=== PATIENT | male | born 2000 | race Caucasian/White ===

== ENCOUNTER 2022-10-08 06:15 | Emergency (ER) | payer OTHER, SELFPAY ==
--- NOTE | ~2022-10-08 | XR_ITS ---
EXAMINATION: XR CHEST CLINICAL INFORMATION: Shortness of breath COMPARISON: None TECHNIQUE: Frontal view of the chest was obtained. FINDINGS: No significant abnormality is noted involving the heart, lungs, mediastinum, bony thorax or soft tissues. XR/XR chest 1V IMPRESSION: Normal chest x-ray.
--- NOTE | 2022-10-08 06:18 | ECG_ITS ---
Test Reason : chest pain/ shortness of breath Blood Pressure : / mmHG Vent. Rate : 070 BPM Atrial Rate : 070 BPM P-R Int : 156 ms QRS Dur : 092 ms QT Int : 390 ms P-R-T Axes : 067 086 058 degrees QTc Int : 421 ms Normal sinus rhythm Normal ECG No previous ECGs available Referred By: Generic ED Physician Electronically Signed By:Lonny Tinoco
[2022-10-08 06:41] LABS: MANUAL DIFF FLAG NO
[2022-10-08 06:44] VITALS: BP 117/73; PULSE 87; RESP 18; TEMP 36.8; O2SAT 99
[2022-10-08 06:45] LABS: Basophils Percent Auto 0.8 % (0-2); Eosinophils Absolute Auto 0.1 X10*3/uL (0.0-0.4); Eosinophils Percent Auto 1.9 % (0-4); Hematocrit 46.5 % (42.0-52.0); Hemoglobin 16.1 g/dl (14.0-18.0); Imm Gran Abs Auto 0.02 X10*3/uL (0.00-0.03); Imm Gran Pct Auto 0.4 % (0.0-0.4); Lymphocytes Absolute Auto 1.5 X10*3/uL (1.2-4.9); Lymphocytes Percent Auto 28.6 % (20-40); Mean Corpuscular HGB Conc 34.6 g/dl (31.0-36.0); Mean Corpuscular Hemoglobin 30.7 pg (27.0-33.0); Mean Corpuscular Volume 88.7 fL (80.0-98.0); Mean Platelet Volume 9.6 fL (9.4-12.4); Monocytes Absolute Auto 0.9 X10*3/uL (0.1-1.2); Monocytes Percent Auto 16.5 % (2-11); Neutrophils Absolute Auto 2.7 x10*3/uL (2.0-8.3); Neutrophils Percent Auto 51.8 % (45-73); Platelet Count 265 X10*3/uL (160-400); Red Blood Count 5.24 X10*6/uL (4.60-5.80); Red Cell Distribution Width 12.5 % (11.0-16.0); White Blood Count 5.3 X10*3/uL (4.8-10.8)
--- NOTE | 2022-10-08 06:46 | ED_ITS ---
HPI - Chest Pain General Chief Complaint: Chest Pain Stated Complaint: Sob/Chest wall pain Time Seen by Provider: 10/08/22 06:37 Source: patient Mode of arrival: ambulatory Limitations: no limitations History of Present Illness HPI narrative: 22 year old male presents to the ED after waking up around 0500 with a cough and chest pain. He denies being sick he states he is vaccinated for covid and flu. He states cough is causing worsening chest pain. He denies fever chills headache, nausea vomiting or diarrhea. MD complaint: chest pain Related Data Previous Rx's Medication Instructions Recorded benzonatate 100 mg capsule 100 mg PO BID #20 caps 10/08/22 Allergies Allergy/AdvReac Type Severity Reaction Status Date / Time No Known Allergies Allergy Unverified 05/21/20 16:40 Review of Systems Review of Systems: Review of systems: General: Patient denies any fever chills recent illness or falls Musculoskeletal: Denies back pain or body aches or other injuries HEENT: denies headache, runny nose, ear pain Respiratory: coughdenies shortness of breath, Cardiovascular: chest pain no palpitations : denies dysuria, frequency Abdomen: no nausea vomiting denies abdominal pain Extremities: no swelling, no pain Skin: no diaphoresis Yes all other systems are reviewed and are negative PMFSH Social History Social History Alcohol intake: never Smoked in Last 30 Days: No Use of substances other than those prescribed or required for medical reasons: No Advance Directives: No Advance Directives Information Provided: No Physical Exam Vital Signs: Vital Signs: Last Vital Signs Temp 98.3 F 10/08/22 07:31 Pulse 64 10/08/22 07:31 Resp 16 10/08/22 07:31 BP 117/73 10/08/22 07:31 Pulse Ox 99 10/08/22 07:31 O2 Del Method 10/08/22 07:31 BMI result Body Mass Index 22.1 General: Well-appearing well-nourished in no signs of distress HEENT: Normocephalic atraumatic Neck: No signs of JVD, no masses no tenderness or lymphadenopathy Cardiovascular: Regular rate and rhythm, chest wall pain reproducible on exam Respiratory: Clear to auscultation bilaterally Abdomen: Soft nontender no masses Extremities: Normal pedal pulses no signs of edema Skin: Dry warm no rashes Back: No tenderness full ROM Medications Administered Discontinued Medications Generic Name Dose Route Start Last Admin Trade Name Trini PRN Reason Stop Dose Admin Benzonatate 100 mg 10/08/22 06:48 10/08/22 07:10 Benzonatate 100 Mg Capsule PO 10/08/22 06:49 100 mg ONCE ONE Administration Sodium Chloride 1,000 mls @ 999 mls/hr 10/08/22 07:15 10/08/22 08:53 Ns IV 10/08/22 08:15 Infused .Q1H1M ARA Infusion Ketorolac Tromethamine 15 mg 10/08/22 07:02 10/08/22 07:10 Ketorolac Tromethamine 15 Mg/Ml Vial IVPUSH 10/08/22 07:03 15 mg ONCE ONE Administration Medical Decision Making Medical Decision Making [facility] Narrative: I will get an x-ray of send labs including RSV COVID and flu will give patient has tessalon Perles and Toradol 0900 covid flu RSV are all negative. I will send home with PCP follow up. Differential Diagnosis Differential Diagnoses: The differential diagnosis associated with the presentation includes ACS but very unlikely I do not think a troponin these symptoms patient EKG is normal patient is a 22 years of age sounds like a viral illness causing chest wall pain obviously pneumonia is on the differential will get a x-ray is no con cerns for PE is tachycardic or hypoxic of these have an aortic herself ruptured cardiac tamponade is very unlikely with a normal x-ray and normal EKG. Admission/Observation Consideration of admission/observation: Escalation of care including admission/observation considered Ninety visit patient looks well Lab Data [facility] Lab Attestation statement: I reviewed the patient's lab results. 10/08/22 06:30 10/08/22 06:30 Labs: Lab Results 10/08/22 10/08/22 10/08/22 Range/Units 06:30 06:30 06:30 WBC 5.3 (4.8-10.8) X10*3/uL RBC 5.24 (4.60-5.80) X10*6/uL Hgb 16.1 (14.0-18.0) g/dl Hct 46.5 (42.0-52.0) % MCV 88.7 (80.0-98.0) fL MCH 30.7 (27.0-33.0) pg MCHC 34.6 (31.0-36.0) g/dl RDW 12.5 (11.0-16.0) % Plt Count 265 (160-400) X10*3/uL MPV 9.6 (9.4-12.4) fL Immature Gran % (Auto) 0.4 (0.0-0.4) % Neut % (Auto) 51.8 (45-73) % Lymph % (Auto) 28.6 (20-40) % [place] % (Auto) 16.5 H (2-11) % Eos % (Auto) 1.9 (0-4) % Baso % (Auto) 0.8 (0-2) % Lymph # (Auto) 1.5 (1.2-4.9) X10*3/uL [place] # (Auto) 0.9 (0.1-1.2) X10*3/uL Eos # (Auto) 0.1 (0.0-0.4) X10*3/uL Baso # (Auto) 0.0 (0.0-0.2) X10*3/uL Abs Immat Gran (auto) 0.02 (0.00-0.03) X10*3/uL Absolute Neuts (auto) 2.7 (2.0-8.3) x10*3/uL Absolute Nucleated RBC 0.000 (0.0-0.012) X10*3/uL Nucleated RBC % (auto) 0.0 (0.0-0.2) /100WBC Sodium 139 (135-145) mmol/L Potassium 3.5 (3.3-5.1) mmol/L Chloride 107 (96-108) mmol/L Carbon Dioxide 26 (22-29) mmol/L Anion Gap 10 L (12-20) BUN 18 H (9-16) mg/dL Creatinine 0.99 (0.5-1.4) mg/dL Estim Creat Clear Calc TNP Estimated GFR > 60 Random Glucose 87 (60-115) mg/dL Calcium 9.2 (8.4-10.2) mg/dL Troponin I High Sens < 3.5 (<3.5-35.0) ng/L Influenza Type A (PCR) (Negative) Influenza Type B (PCR) (Negative) RSV RNA Qual (PCR) (Negative) SARS-CoV-2 RNA (RT-PCR) (Negative) 10/08/22 Range/Units 06:41 WBC (4.8-10.8) X10*3/uL RBC (4.60-5.80) X10*6/uL Hgb (14.0-18.0) g/dl Hct (42.0-52.0) % MCV (80.0-98.0) fL MCH (27.0-33.0) pg MCHC (31.0-36.0) g/dl RDW (11.0-16.0) % Plt Count (160-400) X10*3/uL MPV (9.4-12.4) fL Immature Gran % (Auto) (0.0-0.4) % Neut % (Auto) (45-73) % Lymph % (Auto) (20-40) % Berg[place] % (Auto) (2-11) % Eos % (Auto) (0-4) % Baso % (Auto) (0-2) % Lymph # (Auto) (1.2-4.9) X10*3/uL [place] # (Auto) (0.1-1.2) X10*3/uL Eos # (Auto) (0.0-0.4) X10*3/uL Baso # (Auto) (0.0-0.2) X10*3/uL Abs Immat Gran (auto) (0.00-0.03) X10*3/uL Absolute Neuts (auto) (2.0-8.3) x10*3/uL Absolute Nucleated RBC (0.0-0.012) X10*3/uL Nucleated RBC % (auto) (0.0-0.2) /100WBC Sodium (135-145) mmol/L Potassium (3.3-5.1) mmol/L Chloride (96-108) mmol/L Carbon Dioxide (22-29) mmol/L Anion Gap (12-20) BUN (9-16) mg/dL Creatinine (0.5-1.4) mg/dL Estim Creat Clear Calc Estimated GFR Random Glucose (60-115) mg/dL Calcium (8.4-10.2) mg/dL Troponin I High Sens (<3.5-35.0) ng/L Influenza Type A (PCR) NEGATIVE (Negative) Influenza Type B (PCR) NEGATIVE (Negative) RSV RNA Qual (PCR) NEGATIVE (Negative) SARS-CoV-2 RNA (RT-PCR) NEGATIVE (Negative) Independent Interpretation I performed an independent interpretation of an: EKG Interpretation: Rate 70 normal sinus rhythm normal intervals no signs of ischemia Radiology Impression Discussion of test interpretation with radiology: I have reviewed the radiologist's reading. Radiologist Impression: Read by me no acute disease process Discharge Plan Discharge Clinical Impression: Chest pain, Cough Patient Disposition: Home, Self-Care Instructions: Chest Pain (DC), Acute Cough (ED) Additional Instructions: Please call to follow up for your cough. Prescriptions: New benzonatate 100 mg capsule 100 mg PO BID Qty: 20 0RF Stand Alone Forms: Work/School Release
[2022-10-08 06:48] VITALS: BP 110/76; PULSE 70; RESP 13; O2SAT 97
--- NOTE | 2022-10-08 06:50 | PC.NURSE ---
Addendum entered by Beata Moore 10/08/22 06:52: labs collected by straight needle Original Note: pt c/o sob, chest pain that radiates to lower L side of back , couigh that began this morning upon waking, pt states he was wheezing aox4, no respiratory distress, able to speak in full senetnces IV line 20g est in L forearm labs collected/cov/rsv/flu swab collected in M4tube and sent to lab via tube system
--- NOTE | 2022-10-08 06:57 | PC.NURSE ---
pt aware urine collection is needed
[2022-10-08 06:59] LABS: Anion Gap 10 (12-20); Blood Urea Nitrogen 18 mg/dL (9-16); Calcium 9.2 mg/dL (8.4-10.2); Carbon Dioxide 26 mmol/L (22-29); Chloride 107 mmol/L (96-108); Estimated Glomerular Filt Rate > 60; Glucose Random 87 mg/dL (60-115); Potassium 3.5 mmol/L (3.3-5.1); Sodium 139 mmol/L (135-145)
[2022-10-08] MEDS: Benzonatate 100 MG CAPSULE PO (07:10)
[2022-10-08] MEDS: Ketorolac Tromethamine 15 MG/ML VIAL IVPUSH (07:10)
[2022-10-08] MEDS: 0.9 % Sodium Chloride 1,000 ML 999 ML IV (07:12)
[2022-10-08 07:31] VITALS: BP 117/73; PULSE 64; RESP 16; TEMP 36.8; O2SAT 99; BMI 22.1
[2022-10-08 07:36] LABS: Troponin-I High Sensitivity < 3.5 ng/L (<3.5-35.0)
--- NOTE | 2022-10-08 07:40 | PC.NURSE ---
pt a/o x 4 no sob/tung noted speaks in full sentences. lungs - diminished. heart sounds - regular. abd - soft, non-tender, bs + x 4 quads. no edema noted. ivf infusing.
[2022-10-08 08:47] LABS: Influenza A PCR NEGATIVE (Negative); Influenza B PCR NEGATIVE (Negative); Resp Syncy Virus RNA Qual PCR NEGATIVE (Negative); SARS COV2 PCR INHOUSE NEGATIVE (Negative)
[2022-10-08 08:56] LABS: Appearance Urine Clear; Color Urine Yellow; Glucose Urine UA Negative (Negative); Leukocyte Esterase Urine Negative (Negative); Nitrite Urine Negative (Negative); PH 6.5 (5.0-9.0); Specific Gravity - Urine 1.025 (1.005-1.025); UMIC TRIGGER UACC YES; Urine Blood Trace (Negative); Urine Ketones Negative (Negative); Urine Protein Negative (Neg-Trace)
[2022-10-08 09:02] LABS: Bacteria Urine None Seen (None Seen); Hyaline Casts Urine 0-2 /LPF (0-2); RBC Urine 0-2 /HPF (0-2); Squamous Epithelial Cell Urine 0-2 /HPF (0-2); WBC Urine 0-5 /HPF (0-5)
[2022-10-08 09:13] VITALS: BP 109/70; PULSE 65; RESP 14; TEMP 36.8; O2SAT 98
== END 2022-10-08 09:22 | disposition home or self-care (01) ==
PROVIDERS: Emergency Provider Student in an Organized Health Care Education/Training Program
DX: R07.9 Chest pain, unspecified (principal); R05.9 Cough, unspecified; Z20.822 Contact with and (suspected) exposure to COVID-19; Z20.828 Contact with and (suspected) exposure to other viral communicable diseases; R06.02 Shortness of breath
CPT/HCPCS: 0241U; 36415; 71045; 80048; 81001; 81003; 84484; 85025; 93005; 96361; 96374; 99284; 99285; J1885

== ENCOUNTER 2023-07-20 19:34 | Emergency (ER) | payer OTHER, SELFPAY ==
--- NOTE | ~2023-07-20 | XR_ITS ---
EXAMINATION: XR KNEE, LEFT CLINICAL INFORMATION: Injury COMPARISON: 10/06/2012 TECHNIQUE: Four views of the left knee. FINDINGS: No significant joint effusion. Bones are normal anatomic alignment with no acute fracture or dislocation. Well-corticated ossification along the inferior aspect of the patella is noted but this is not an acute appearing process although it was less apparent on the 10/06/2012 study suggesting an old healed injury. XR/XR knee LT 3V IMPRESSION: No acute fracture or dislocation. 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
[2023-07-20 19:40] VITALS: BP 124/74; PULSE 84; RESP 20; TEMP 36.9; O2SAT 99; BMI 22.1
--- NOTE | 2023-07-20 21:54 | ED_ITS ---
HPI - Extremity Injury (Lower) General Chief Complaint: Extremity Injury, Lower Stated Complaint: fell on knee playing basketball, L knee pain Time Seen by Provider: 07/20/23 19:39 Source: patient Mode of arrival: ambulatory Limitations: no limitations History of Present Illness HPI Narrative: Patient comes to the emergency room complaining of left knee pain. Patient states that he was playing basketball, jumped and when he landed, patient heard a loud popping noise on the left knee. Patient states that he heard the loud popping noise coming from the knee, he has not been able to bear any weight. Patient denies falling or blunt trauma. Patient denies any other injuries. Related Data Previous Rx's Medication Instructions Recorded benzonatate 100 mg capsule 100 mg PO BID #20 caps 10/08/22 acetaminophen 500 mg tablet 500 mg PO Q6H PRN fever or pain 07/20/23 #20 tabs ketorolac 10 mg tablet 10 mg PO TID PRN pain #10 tabs 07/20/23 Allergies Allergy/AdvReac Type Severity Reaction Status Date / Time No Known Allergies Allergy Verified 07/20/23 19:40 Review of Systems Review of Systems: Constitutional : No Weight loss, No Fever, No Chills, No Night Sweats, No Fatigue, No Malaise ENT/Mouth : No Hearing loss, No Ear Pain, No Nasal Congestion, No Sinus Pain, No Hoarseness, No sore throat, No Rhinorrhea, No Swallowing Difficulty Eyes: No Eye Pain, No Swelling, No Redness, No Foreign Body, No Discharge, No Vision Changes Cardiovascular : No Chest Pain, No SOB, No Dyspnea on Exertion, No Orthopnea, No Edema, No Palpitations Respiratory : No Cough, No Sputum, No Wheezing, No Smoke Exposure, No Dyspnea Gastrointestinal : No Nausea, No Vomiting, No Diarrhea, No Constipation, No abdominal Pain, No Hematochezia, No Melena Genitourinary : no irregular bleeding, No Dysuria, No Urinary Frequency, No Hematuria, No Urinary Incontinence, No Urgency, No Flank Pain, No Urinary Flow Changes, No Hesitancy Musculoskeletal : Complaining of left knee pain, loud popping noise, unable to bear weight Skin : No Skin Lesions, No rash Neuro : No Weakness, No Numbness, No Paresthesias, No Loss of Consciousness, No Dizziness, No Headache Psych : No Anxiety/Panic, No Depression, No SI/HI/AH/VH, No Social Issues, Heme/Lymph: No Bruising, No Bleeding,No Lymphadenopathy Endocrine : No Polyuria, No Polydipsia, No Temperature Intolerance [facility] Social History Social History Alcohol intake: never Advance Directives: No Advance Directives Information Provided: No Physical Exam Vital Signs: Vital Signs: Last Vital Signs Temp 98.4 F 07/20/23 19:40 Pulse 84 07/20/23 19:40 Resp 20 07/20/23 19:40 BP 124/74 07/20/23 19:40 Pulse Ox 99 07/20/23 19:40 O2 Del Method Room Air 07/20/23 19:40 BMI result Body Mass Index 22.1 Const: Other: Appearance: Alert. Oriented X3. No acute distress. Eyes: Pupils equal, round and reactive to light. ENT: Pharynx normal. Neck: Normal inspection. Neck supple. No lymph nodes noted. No crepitus CVS: Normal heart rate and rhythm. Pulses normal. Normal S1 and S2 Respiratory: No respiratory distress. Breath sounds normal. No Wheezing. No rales Abdomen: Soft and nontender. No rigidity. No distention. Skin: Skin warm and dry. Normal skin color. Normal skin turgor. Extremities: Patient able to flex and extend the right knee without any pain. Patient able to bear weight. On the left knee. Patient has a normal appearing knee, no swelling, no deformity. Patient can barely flex the left knee or extended due to pain. He cannot bear weight. Patient states that most the pain is from the medial aspect of the knee Neuro: Oriented X 3. No motor deficit. No sensory deficit. Moving all extremities. No slurred speech. CN 2 through 12 grossly intact Psych: calm, cooperative, normal affect Medical Decision Making Medical Decision Making MDM Narrative: -I discussed the physical exam with the patient, is possible the patient had a meniscus tear or ligament tear. Patient will follow-up with his primary care physician and Orthopedics, patient might need an MRI. -patient was given a dose of IM Toradol -patient provided with crutches and an knee brace -my interpretation of x-ray of the knee: No fracture, normal alignment. Differential Diagnosis Differential Diagnoses: The differential diagnosis associated with the presentation includes (Left knee ligament injury, meniscus tear, contusion) Independent Interpretation I performed an independent interpretation of an: Plain X-Ray Radiology Impression Discussion of test interpretation with radiology: I have reviewed the radiologist's reading. Radiologist Impression: No significant joint effusion. Bones are normal anatomic alignment with no acute fracture or dislocation. Well-corticated ossification along the inferior aspect of the patella is noted but this is not an acute appearing process although it was less apparent on the 10/06/2012 study suggesting an old healed injury. XR/XR knee LT 3V IMPRESSION: No acute fracture or dislocation. 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 Discharge Plan Discharge Clinical Impression: Acute meniscal injury of knee Patient Disposition: Home, Self-Care Instructions: Crutch Instructions (ED), Knee Pain (ED) Additional Instructions: Please follow-up with your primary care physician tomorrow. If you have any worsening or new symptoms, please return to the emergency room or call 911 Prescriptions: New ketorolac 10 mg tablet 10 mg PO TID PRN (Reason: pain) Qty: 10 0RF Rx Instructions: Do not use this medication with NSAIDs, only Tylenol acetaminophen 500 mg tablet 500 mg PO Q6H PRN (Reason: fever or pain) Qty: 20 0RF No Action benzonatate 100 mg capsule 100 mg PO BID Qty: 20 0RF Referrals: Evens Beebe MD [Physician] - 07/24/23 Stand Alone Forms: Work/School Release
[2023-07-20] MEDS: Ketorolac Tromethamine 60 MG/2 ML VIAL IM (21:57)
== END 2023-07-20 22:48 | disposition home or self-care (01) ==
PROVIDERS: Emergency Provider Emergency Medicine
DX: S89.92XA Unspecified injury of left lower leg, initial encounter (principal); M79.605 Pain in left leg; Y33.XXXA Other specified events, undetermined intent, initial encounter; Y93.9 Activity, unspecified; Y92.9 Unspecified place or not applicable; Y99.9 Unspecified external cause status; Z79.899 Other long term (current) drug therapy
CPT/HCPCS: 73562; 96372; 99283; 99284; J1885

== ENCOUNTER 2023-07-24 12:39 | Outpatient (AMB) | payer SELFPAY ==
--- NOTE | 2023-07-24 12:42 | MHC.OFFVIS ---
Intake Vital Signs 07/24/23 12:44 Height 6 ft Weight 163 lb BMI 22.1 Intake Visit Reasons: ED F/U- LT Acute meniscal injury of knee Intake Note: Ang jackson 23 year old male presents today for an ER follow up of left knee, DOI 07/20/23. Patient reports he was playing basketball, jumped up and with landing he heard a loud popping noise. He had instant pain and was not been able to bear any weight. Patient presented to [facility] ED same day where xrays were taken, brace was given and referred to orthopedics. Currently he has constant sharp pain that at times radiates down to his foot. States a tingling sensation at the medial aspect of knee. Finds relief with Tylenol and ketorolac that was prescribed by ER. He has been out of work since his injury. Allergies No Known Allergies Allergy (Verified 07/24/23 12:54) HPI ED F/U- LT Acute meniscal injury of knee HPI Details 23-year-old male who presents to the office today for an ER follow-up of left knee injury s/p playing basketball when he jumped up and heard a loud pop in his knee upon landing, 07/20/23. He reports he instantly experienced pain and is unable to bear weight since his DOI. He was seen at ED the same day where x-rays were performed, given a brace and he was referred to our office. He currently states he has constant sharp pain which occasional radiates down to his foot. He also c/o tingling sensation at the medial aspect of his knee. He finds relief with Tylenol and ketorolac which was prescribed by ER. 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 [facility] Social History (Updated 07/24/23 @ 12:48 by GEORGE Esteban) Alcohol intake: never Patient Tobacco Use Status: Never used Tobacco Current occupational status: employed Current occupation: [employer] Review of Systems Const All systems reviewed & are unremarkable except as noted in HPI and below Physical Exam Vital Signs: BMI result Body Mass Index 22.1 Const General: cooperative and no acute distress Orientation/consciousness: patient oriented x3 Resp Effort & Inspection: normal respiratory effort and able to speak in complete sentences Cardio Peripheral pulses: Peripheral pulses 2+ throughout Neuro General: patient oriented x3 Extrem Other: Left knee: Skin intact, no erythema. Medial sided joint pain along with medial sided retropatellar pain present. Rom limited due to effusion. Positive ligamentous laxity with Benjamin testing. NVI. Office Procedures Joint Injection/Drain Joint Injection/Drain Details: left knee asp of 35cc blood Primary Site: left knee Prep: site was prepped using aseptic technique and injection warnings given Injected: in the joint Approach Used: lateral parapatellar Procedure: The patient tolerated the procedure well Coding 51333 - Glenohumeral/Tronchanteric Bursa/Intraarticular Procedure code (CPT) selection complete Results Reviewed Results Reviewed: xrays of the left knee obtained in the ED on 07/20/23 are negative for acute fracture or dislocations. Assessment & Plan Assessment & Plan (1) Internal derangement of left knee: Code(s): M23.92 - Unspecified internal derangement of left knee (2) Injury of ligament of knee: Code(s): S89.90XA - Unspecified injury of unspecified lower leg, initial encounter Qualifiers: Encounter type: initial encounter Laterality: left Qualified Code(s): S89.92XA - Unspecified injury of left lower leg, initial encounter Plan Left knee was aspirated 35cc blood. I strongly encouraged him to work on ROM of left knee and we reviewed these exercises in the office today. I also put in an order for PT to work on ROM and isometric quad exercises. An MRI of the left knee has been ordered to further evaluate the ligamentous structures. He was given a knee brace to help with stability. He will remain out of work till I see him back with the results. Orders: Orders MR knee LT wo con Today M23.92 - Unspecified internal derangement of left knee PT Evaluation and Treatment Today M23.92 - Unspecified internal derangement of left knee, S89.90XA - Unspecified injury of unspecified lower leg, initial encounter Patient Instructions: Scribed for Monica Spears PA-C, by Estuardo Hidalgo medical assistant per diem, on 07/24/2023 at 1:00 PM EST. IMonica PA-C, have personally reviewed and agree with the information entered by the scribe. Coding Level of Care Code New Pt Level 3 (23736) Diagnoses Internal derangement of left knee M23.92 Injury of ligament of left knee, initial encounter S89.92XA Encounter type: initial encounter Laterality: left CPT Codes Coding - Joint 7: 16881 - Glenohumeral/Tronchanteric Bursa/Intraarticular ([id number])
[2023-07-24 12:44] VITALS: BMI 22.1
== END 2023-07-24 13:28 | disposition home or self-care (01) ==
PROVIDERS: Visit Provider Physician Assistant
DX: M23.92 Unspecified internal derangement of left knee (principal); S89.92XA Unspecified injury of left lower leg, initial encounter
CPT/HCPCS: 20610; 99204

== ENCOUNTER → 2023-07-24 12:39 | Outpatient (BNVA) | payer OTHER, SELFPAY | PROVIDERS: Visit Provider Physician Assistant | DX: M23.92 Unspecified internal derangement of left knee (principal); S83.8X2A Sprain of other specified parts of left knee, initial encounter | CPT/HCPCS: 20610; 99202 ==

== ENCOUNTER 2023-08-10 13:47 | Outpatient (REF) | payer OTHER, SELFPAY ==
--- NOTE | ~2023-08-10 | MR_ITS ---
EXAMINATION: MR KNEE WITHOUT CONTRAST, LEFT CLINICAL INFORMATION: Internal derangement. Patient reports left knee pain. COMPARISON: X-rays of the left knee July 2023 and October 2012. TECHNIQUE: MRI of the knee without contrast was performed using routine sequences on a high-field scanner. FINDINGS: MENISCI: Medial Meniscus: Intact. Lateral Meniscus: Subtle increased signal along the periphery of the posterior horn at the meniscocapsular attachment. This could reflect normal variation versus peripheral vertical tear. LIGAMENTS: Cruciate: ACL: There is a tear of the anterior cruciate ligament more likely complete than incomplete. The tear appears acute. PCL intact. Collateral: Intact. EXTENSOR MECHANISM: Normal. ARTICULAR CARTILAGE/BONE: Patellofemoral Compartment: There is an ossific fragment with or without partial osseous continuity with the more proximal patella. Minimal edema in the distal fragment. This could reflect a bipartite patella versus old fracture involving the base of the distal pole. The articular cartilage is normal. Medial Compartment: Subchondral bone marrow edema along the peripheral medial margin of the weightbearing medial femoral condyle. Subchondral bone marrow edema along the peripheral margin of the medial tibial plateau. Lateral Compartment: Subchondral bone marrow edema in the region of the sulcus terminalis overlying articular cartilage intact. Subchondral bone marrow edema along the peripheral posterior margin of the lateral plateau. Findings compatible with bone contusions. JOINT FLUID AND BURSAE: There is a mild joint effusion. MR/MR knee LT wo con IMPRESSION: 1. Acute tear of the anterior cruciate ligament more likely complete than incomplete. 2. Bone contusion pattern consistent with acute ACL tear. 3. Possible tear of the periphery of the posterior horn of the lateral meniscus versus normal variation. 4. Type I inferior pole bipartite patella versus old fracture involving the base of the distal pole of the patella. 5. Mild joint effusion.
== END 2023-08-10 13:48 | disposition home or self-care (01) ==
LOC: HO.MRI 13:47
PROVIDERS: Visit Provider Physician Assistant
DX: M23.92 Unspecified internal derangement of left knee (principal)
CPT/HCPCS: 73721

== ENCOUNTER 2023-08-21 10:05 | Outpatient (AMB) | payer OTHER, SELFPAY ==
[2023-08-21 10:07] VITALS: BMI 22.1
--- NOTE | 2023-08-21 10:07 | A.OFFVIS_ITS ---
Intake Vital Signs 08/21/23 10:07 Height 6 ft Weight 163 lb BMI 22.1 Intake Visit Reasons: ov- MRI Knee LT review Intake Note: Ang is a 23 year old male who presents today for an MRI review of his Left knee s/p basketball injury on 07/20/23. Since his last appointment he has discontinued use of crutches and has been doing home exercise program. Allergies No Known Allergies Allergy (Verified 07/24/23 12:54) HPI ov- MRI Knee LT review HPI Details Ang is a 23 year old man who presents for an MRI review of his left knee. He has pain with twisting occasionally but otherwise minimal discomfort. He injured his knee playing Basketball on 07/20/23. He was last seen by FRANCISCO JAVIER Spears on 07/21/23 where his knee was aspirated and PT was ordered. He has discontinued the use of his crutches and has been performing at-home exercises. [facility] Social History (Updated 07/24/23 @ 12:48 by Laly Galaviz FOR[facility]LY [facility], [facility]) Alcohol intake: never Patient Tobacco Use Status: Never used Tobacco Current occupational status: employed Current occupation: [employer] Review of Systems Const All systems reviewed & are unremarkable except as noted in HPI and below Physical Exam Vital Signs: BMI result Body Mass Index 22.1 Const General: no acute distress, alert and awake Orientation/consciousness: patient oriented x3 HEENT Head: Yes normocephalic and Yes atraumatic Eyes EOM: EOMs intact bilaterally Resp Effort & Inspection: normal respiratory effort and able to speak in complete sentences Cardio Jugular venous distension: no JVD Skin General skin exam: turgor normal Rashes: no rashes Neuro General: patient oriented x3 Extrem Other: no effusion 2+ hui's Psych Appearance: grossly normal Affect: normal affect Attitude: cooperative Results Reviewed Results Reviewed: I personally reviewed relevant MR images 1. Acute tear of the anterior cruciate ligament more likely complete than incomplete. 2. Bone contusion pattern consistent with acute ACL tear. 3. Possible tear of the periphery of the posterior horn of the lateral meniscus versus normal variation. 4. Type I inferior pole bipartite patella versus old fracture involving the base of the distal pole of the patella. 5. Mild joint effusion. Assessment & Plan Assessment & Plan (1) Rupture of left anterior cruciate ligament: Code(s): S83.512A - Sprain of anterior cruciate ligament of left knee, initial encounter Plan: This is 23 yo M with an acute ACL rupture left knee. I reviewed his MRI and I discussed the anatomy and the pathophysiology. I recommend ACL reconstruction with allograft. .I discussed the risks benefits and alternatives including but not limited to the risk of pain, infection, stiffness, need for further surgery as well as potential medical complications. I explained the post op recovery and out expectations regarding PT. He expressed understanding and we will proceed forward accordingly. Plan Scribed for Evens Beebe MD by Tomas Bentley, forensic medical examiner, on 08/21/23 at 10:20 AM, EST. Coding Level of Care Code Est Pt Level 4 (80295) Diagnoses Rupture of left anterior cruciate ligament S83.512A
== END 2023-08-21 11:48 | disposition home or self-care (01) ==
PROVIDERS: Visit Provider Orthopaedic Surgery
DX: S83.512A Sprain of anterior cruciate ligament of left knee, initial encounter (principal)
CPT/HCPCS: 99214

== ENCOUNTER → 2023-08-21 10:05 | Outpatient (BNVA) | payer OTHER, SELFPAY | PROVIDERS: Visit Provider Orthopaedic Surgery ==

== ENCOUNTER 2023-09-01 09:56 | Outpatient (RCR) | payer OTHER, SELFPAY ==
--- NOTE | 2023-09-01 11:29 | MHC.PT.EP ---
[facility] [place] Office [place] Office [place] Office [address] [phone] F: [phone] F: [phone] F: [phone] F: [phone] Physical Therapy Plan of Care Date of Evaluation: 09/01/23 Date of Surgery: 09/13/15 Diagnosis: INTERNAL DERANGEMENT OF L KNEE Assessment: Pt IS 23 YO M S/P TORN ACL L (BASKETBALL INJURY 07/20/23). IS SCHEDULED FOR ACL RECONSTRUCTION WITH ALLOGRAFT WITH DR DORAN ON Sep. Pt WAS WORKING Only [employer] PRIOR TO INJURY. PRESENTS WITH LIMITED ROM AND STRENGTH L LE WITH PAIN AND SOME JT INFLAMMATION. Pt WITH LIMP. SHOULD BENEFIT FROM ONE MORE PRE-OP SESSION TO REV PO PT/BRACE/CRUTCHES ETC. THEN CONTINUE WITH PT POST OP Frequency and Duration: The patient will be seen 1X/WK X 2 WKS FOR PRE-OP Short Term Goals: 1. INCREASED AWARENESS L KNEE CARE PRE-OP AND PO ACL REPAIR 2. I HEP FOR L LE PRE-OP AND POST OP Research Associate Professor Goals: Treatment Plan: Modalities to reduce pain, spasms and effusion. Manual therapy to restore motion and function. Therapeutic exercise to improve strength and flexibility. Neuromuscular re-education for posture and balance. Therapeutic activities to return to functional activities of daily living. Electronically signed by: CHIO BAILEY PT Please sign and return to therapist. Thank you for your referral.
--- NOTE | 2023-12-11 14:07 | MHC.PT.DC ---
[facility] [place] Office [place] Office [place] Office [address] Cory Sellers [address] [phone] F: [phone] F: [phone] F: [phone] F: [phone] Physical Therapy Discharge Report Diagnosis: INTERNAL DERANGEMENT OF L KNEE Date of Surgery: 09/13/15 Date of Evaluation: 09/01/23 Date of Discharge: 12/11/23 Treatments to Date: 1 Cancellations to Date: No Shows to Date: Discharge Status: Discharge Summary: THIS IS A PRE-0P DC NOTE. Pt IS CURRENTLY HAVING POST OP PT Pt IS 23 YO M S/P TORN ACL L (BASKETBALL INJURY 07/20/23). IS SCHEDULED FOR ACL RECONSTRUCTION WITH ALLOGRAFT WITH DR DORAN ON Sep. Pt WAS WORKING [employer] PRIOR TO INJURY. PRESENTS WITH LIMITED ROM AND STRENGTH L LE WITH PAIN AND SOME JT INFLAMMATION. Pt WITH LIMP. SHOULD BENEFIT FROM ONE MORE PRE-OP SESSION TO REV PO PT/BRACE/CRUTCHES ETC. THEN CONTINUE WITH PT POST OP OF NOTE, ? [employer] Electronically signed by: CHIO BAILEY PT Please sign and return to therapist. Thank you for your referral.
== END 2023-12-11 14:07 | disposition home or self-care (01) ==
LOC: HO.PT 09:56
PROVIDERS: PCP Family Medicine; Visit Provider Physician Assistant
DX: M23.92 Unspecified internal derangement of left knee (principal); S89.92XD Unspecified injury of left lower leg, subsequent encounter
CPT/HCPCS: 97110; 97161; 97535

== ENCOUNTER 2023-09-07 13:25 | Outpatient (AMB) | payer OTHER, SELFPAY ==
--- NOTE | 2023-09-07 13:33 | MHC.OFFVIS ---
Intake Vital Signs 09/07/23 13:34 Height 6 ft Weight 163 lb BMI 22.1 Intake Visit Reasons: Pre Op Lt ACT w/ autograft 09/13/23 NE Intake Note: Ang is a 23 year old male who presents today for a post op appointment for his left left ACL reconstruction with allograft verses autograft 09/13/23 NE. Allergies No Known Allergies Allergy (Verified 09/07/23 13:34) HPI Pre Op Lt ACT w/ autograft 09/13/23 NE HPI Details 23-year-old male who presents in the office today for his preoperative history and physical exam prior to a left ACL reconstruction with allograft verses autograft to be performed on 09/13/[address] Beebe. Patient has no known allergy history. Patient is currently taking, as follows: -Acetaminophen 500 mg PO Q6H PRN -Ketorolac 10 mg PO TID PRN Patient has no significant medical history. Patient has no known surgical history. Patient has a social history, as follows: -Patient currently works at the [employer]. [facility] Social History Alcohol intake: never Patient Tobacco Use Status: Never used Tobacco Current occupational status: employed Current occupation: [employer] Review of Systems Const All systems reviewed & are unremarkable except as noted in HPI and below Physical Exam Vital Signs: BMI result Body Mass Index 22.1 Const General: cooperative, healthy appearing, comfortable, no acute distress, well developed, alert and awake Orientation/consciousness: patient oriented x3 HEENT Head: Yes normal to inspection, Yes normocephalic and Yes atraumatic Eyes General: appearance normal, both eyes and all related structures EOM: EOMs intact bilaterally Neck Neck: Yes normal visual inspection and Yes no lymphadenopathy Resp Effort & Inspection: normal respiratory effort and able to speak in complete sentences Cardio Jugular venous distension: no JVD Rate: regular rate Peripheral pulses: Peripheral pulses 2+ throughout GI Inspection: Yes normal to inspection Palpation (GI): Soft to palpation Skin General skin exam: no rashes or lesions noted Rashes: no rashes Neuro General: patient oriented x3 Extrem Other: Left knee: Skin is clean, dry, and intact. no effusion 2+ hui's Psych Appearance: grossly normal Mental Status: mental status grossly normal Affect: normal affect Attitude: cooperative Assessment & Plan Assessment & Plan (1) Rupture of left anterior cruciate ligament: Code(s): S83.512A - Sprain of anterior cruciate ligament of left knee, initial encounter Qualifiers: Encounter type: subsequent encounter Qualified Code(s): S83.512D - Sprain of anterior cruciate ligament of left knee, subsequent encounter Plan Mr. Gregg is a 23-year-old male who presents in the office today for his preoperative history and physical exam prior to a left ACL reconstruction with allograft verses autograft to be performed on 09/13/[address] Beebe. Patient has no known allergy history. Patient is currently taking, as follows: -Acetaminophen 500 mg PO Q6H PRN -Ketorolac 10 mg PO TID PRN Patient has no significant medical history. Patient has no known surgical history. Patient has a social history, as follows: -Patient currently works at the [employer]. I discussed in detail the procedure and what to expect pre and post operatively. We discussed the risks, benefits and alternatives to the surgery as well as the rehabilitation course. The risks; which include, but are not limited to infection, bleeding, nerve injury, ongoing pain, swelling, and stiffness, perioperative risk of injury to bones and soft tissues, and blood clots. I have answered all questions and with their understanding they have consented to move forward with a left ACL reconstruction with allograft verses autograft to be performed on 09/13/[address] Evens Beebe. The patient was fitted for the brace while in the office. Preoperative medications were also sent to the pharmacy, oxycodone 5mg po q 4-6hrs #42 for 7 days, and MS Contin 15mg po q 12 hrs #6 for 3 days. The patient was instructed that he should obtain prior to surgery but should not consume until after surgery and should only be taken for post operative pain management. Should the patient take these medications prior to surgery a refill will not be sent to the pharmacy until their scheduled refill date. The office will contact the Physical therapy office to see about getting the patient an earlier appointment before the current scheduled one on 09/20/2023. Follow up will be at the post operative appointment on 09/19/2023 at 10:30 am, or sooner if needed. Medications: New oxycodone-acetaminophen 5-325 mg (Percocet) Partial Fill upon patient request. 1 tab PO Q4-6H PRN 42 tabs 0RF pain 7 days morphine ER (MS Contin) Partial Fill upon patient request. 15 mg PO Q12H 6 tabs 0RF pain, severe 3 days Patient Instructions: Scribed for Emperatriz Barrett PA-C by Aylin Caban front office medical assistant, on 09/07/2023 at 1:28 pm, EST. Coding Level of Care Code Global (76635) Diagnoses Rupture of anterior cruciate ligament of left knee, subsequent encounter S83.512D Encounter type: subsequent encounter
[2023-09-07 13:34] VITALS: BMI 22.1
== END 2023-09-07 14:14 | disposition home or self-care (01) ==
PROVIDERS: Visit Provider Physician Assistant
DX: S83.512D Sprain of anterior cruciate ligament of left knee, subsequent encounter (principal)
CPT/HCPCS: 99024

== ENCOUNTER → 2023-09-07 13:25 | Outpatient (BNVA) | payer OTHER, SELFPAY | PROVIDERS: Visit Provider Physician Assistant ==

== ENCOUNTER 2023-09-13 09:07 | Day surgery (SDC) | payer OTHER, SELFPAY ==
[2023-09-11 06:36] VITALS: BMI 22.1
--- NOTE | 2023-09-12 08:09 | HO.ANESPROP2 ---
Documented by User: Asiya Hou NP 09/12/23 08:10 HPI - Anesthesia Eval Consult details Narrative: 23yo M for Left ACL Allograft vs Autograft PMFSH Active Problems Active Problems: All Active Problems (Updated 09/07/23 @ 13:35 by Aylin Caban) Rupture of left anterior cruciate ligament (Acute) Injury of ligament of knee (Acute) Internal derangement of left knee (Acute) Past Medical History Medical History No pertinent past medical history Surgical History Surgical History No pertinent past surgical history Social History Social History Alcohol intake: never Patient Tobacco Use Status: Never used Tobacco Use of substances other than those prescribed or required for medical reasons: No Are you DNR?: No Advance Directives: No Advance Directives Information Provided: Yes Current occupational status: employed Current occupation: [employer] Allergies Allergy/AdvReac Type Severity Reaction Status Date / Time No Known Allergies Allergy Verified 09/13/23 09:18 Exam Height,Weight and Vital Signs: Height 6 ft Weight 73.936 kg Narrative Narrative: EKG 10/2022 Vent. Rate : 070 BPM Atrial Rate : 070 BPM P-R Int : 156 ms QRS Dur : 092 ms QT Int : 390 ms P-R-T Axes : 067 086 058 degrees QTc Int : 421 ms Normal sinus rhythm Normal ECG No previous ECGs available Assessment and Plan Assessment Anesthesia Assessment: Chart Reviewed Documented by User: Emely Harding MD 09/13/23 10:55 PMFSH Past Medical History Medical History No pertinent past medical history Family History Family history of problems with anesthesia: No Surgical History Surgical History No pertinent past surgical history History of Problems with Anesthesia: No Social History Social History Alcohol intake: never Patient Tobacco Use Status: Never used Tobacco Use of substances other than those prescribed or required for medical reasons: No Are you DNR?: No Advance Directives: No Advance Directives Information Provided: Yes Current occupational status: employed Current occupation: [employer] Allergies Allergy/AdvReac Type Severity Reaction Status Date / Time No Known Allergies Allergy Verified 09/13/23 09:18 Exam Airway Mallampati Class: I TM Dist: >3cm Neck ROM: Full Heart: rrr Lungs: cta Assessment and Plan Assessment Anesthesia Assessment: Anesthesia Plan Discussed Final Anesthetic Review Family History of Problems with Anesthesia: No History of Problems with Anesthesia: No NPO: Yes ASA Class: I Final Preanesthetic Review: No Changes in Pt Med Stat, Meds/Allgs Chart Reviewed, Consent Obtained/Reviewed and Anes Risks/Benef Reviewed Patient Risk: Low Procedure Risk: Intermediate Anesthetic Plan Anesthetic Plan: GA and Regional Block Disposition: Standard PACU
[2023-09-13] VITALS (8 sets, daily range): BP systolic 110–125; BP diastolic 73–84; PULSE 62–91; RESP 15–16; TEMP 36.2–36.8; O2SAT 96–100; BMI 23.1
[2023-09-13] MEDS: Lactated Ringers 1,000 ML 100 ML IVCONT (09:41)
--- NOTE | 2023-09-13 11:25 | MHC.SHP ---
Pre-Procedural Eval Section A Date of Service: 09/13/23 The patient is an INPATIENT: No Changes since office visit: No Cold of Flu in the past 2 weeks, No New Medical Problems, No Changes in Medication and No Patient answered all questions The History & Physical has been completed within 30 days and I have reviewed it.: Yes Section B Chief Complaint: Sprain of anterior cruciate ligament of left knee, Allergies: Allergies Allergy/AdvReac Type Severity Reaction Status Date / Time No Known Allergies Allergy Verified 09/13/23 09:18 Plan I have reviewed the history and physical and performed a pertinent physical examination on my patient. No changes have occurred unless specified. Time Spent With Patient Time: Total time managing care of this patient today ____ minutes.
--- NOTE | 2023-09-13 13:01 | P.BOP_ITS ---
Brief Operative Note Date of Service: 09/13/23 Pre-op diagnosis: Left ACL tear Post-op diagnosis: same Procedure: Left ACL reconstruction with allograft Implants: Lowe and Nephew ACL suture button Lowe and Nephew 10x25 interference screw Surgeon: Evens Beebe MD Anesthesia: GETA and regional Was an Senior Applications Engineer used for this Procedure?: Yes Senior Applications Engineer: Emperatriz Barrett Estimated blood loss (mL): 20 Tourniquet time (min): 55 IV fluids (mL): 1,000 Pathology: none sent Condition: stable Disposition: PACU
--- NOTE | 2023-09-15 16:21 | W.PM.OPN ---
Operative Note Operative Note Date of Service: 09/13/23 Narrative: Date of Service: 09/13/23 Pre-op diagnosis: Left ACL tear Post-op diagnosis: same Procedure: Left ACL reconstruction with allograft Implants: Lowe and Nephew ACL suture button Lowe [employer] Nephew 10x25 interference screw Surgeon: Evens Beebe MD Anesthesia: GETA and regional Was an Rn Palliative used for this Procedure?: Yes Rn Palliative: Emperatriz Barrett Estimated blood loss (mL): 20 Tourniquet time (min): 55 IV fluids (mL): 1,000 Pathology: none sent Condition: stable Disposition: PACU Procedure in detail: Patient was brought to the operating room placed supine on the arthroscopic table and prepped and draped in standard sterile fashion. A time-out was called to identify proper site proper procedure proper surgeon and IV antibiotics per weight were administered. Under anesthesia she had a + pivot shift. I began by exsanguinating the limb and insufflating tourniquet to 300 mm Hg. Then made a standard anterolateral stab incision. The knee was insufflated with water and 30 degree arthroscope was placed. There was no changes of the patellofemoral joint and overall suprapatellar pouch and the gutters were clean. I descended into the medial compartment where I made my far medial portal under direct visualization. There was normal medial meniscus. THe lateral meniscus and lateral compartment were also normal. The root was intact and there and there were no cartilage changes of the MFC. I then examined the notch where there was a + empty wall sign and an intact PCL. I debrided the stump and acl footprint and performed a limited notchplasty. I then, through a far AM portal and a 7mm behind the back guide, drilled a k-wire through the LFC with the knee in hyper-flexion. I measured the tunnel as a 34 and then after sizing the allograft on the back table drilled a 28 mm tunnel with a 10 mm reamer. The final 6 mm was drilled with a 4.5 reamer. I then pulled a suture through the femoral tunnel and turned my attention to the tibia. I did examine the femoral tunnel and was satisfied with the posterior wall and its location low and medial at the anatomic footprint. I placed my tibial drill guide in 55 deg and, through a anteromedial inc just lateral to the tibial tubercle placed a k-wire into the notch exiting just medial to the anterior horn insertion of the lateral meniscus. I then over-reamed with a 10mm reamer. I cleaned the tunnels up with a shaver. On the back table I whip-stitched the allograft to fit through a 10 aperture and attached the femoral button to the looped end. I placed the graft on 15lbs of tension for 10 minutes. I then passed the allograft through the tibial tunnel and femoral tunnel and flipped the button. I cycled the knee about 10-15 cycles and then placed a tibial interference screw with the knee in hyper-extension while holding the graft taught. Once I was satisfied that the interference screw was buried I examined the ACL and the medial meniscus repair. The repair was stable and the ACL was not impinging and there was a negative pivot shift. I then removed all instrumentation and closed the incisions with nylon. Patient was then placed in sterile dressings and a hinged knee brace. She was then extubated brought recovery room stable condition. There were no known complications.
== END 2023-09-13 15:37 | disposition home or self-care (01) ==
LOC: HO.SSS 09:08
PROVIDERS: Visit Provider Orthopaedic Surgery
PROC: (CPT 27428; principal; 2023-09-13 11:30)
DX: S83.512A Sprain of anterior cruciate ligament of left knee, initial encounter (principal); X58.XXXA Exposure to other specified factors, initial encounter; Y93.9 Activity, unspecified; Y92.9 Unspecified place or not applicable; Y99.8 Other external cause status
CPT/HCPCS: 29888; C1713; C1769; J0131; J0171; J0665; J0690; J1100; J2250; J2405; J2704

== ENCOUNTER → 2023-09-13 09:07 | Outpatient (BNV) | payer OTHER, SELFPAY | PROVIDERS: Visit Provider Orthopaedic Surgery | DX: S83.512A Sprain of anterior cruciate ligament of left knee, initial encounter (principal) | CPT/HCPCS: 29888 ==

== ENCOUNTER 2023-09-19 09:26 | Outpatient (REF) | payer OTHER, SELFPAY ==
--- NOTE | ~2023-09-19 | XR_ITS ---
EXAMINATION: XR KNEE, LEFT CLINICAL INFORMATION: Knee pain. COMPARISON: July 20, 2023. TECHNIQUE: Single view of the left knee. XR/XR knee LT 1V FINDINGS/IMPRESSION: Examination demonstrates postsurgical changes most notably involving the proximal left tibia, possibly related to ACL repair. A brace projects over either side of the knee. No fracture or dislocation is seen. Limited evaluation for effusion.
== END 2023-09-19 09:27 | disposition home or self-care (01) ==
LOC: HO.HOSX 09:26
PROVIDERS: Visit Provider Physician Assistant
DX: Z47.89 Encounter for other orthopedic aftercare (principal); Z98.890 Other specified postprocedural states
CPT/HCPCS: 73560; 99212

== ENCOUNTER 2023-09-19 10:26 | Outpatient (AMB) | payer OTHER, SELFPAY ==
--- NOTE | 2023-09-19 10:31 | A.OFFVIS_ITS ---
Intake Intake Visit Reasons: PO Lt ACT w/ autograft 09/13/23 NE Intake Note: Ang is a 23 year old male who presents today for a post op appointment s/p left ACT w/ autograft 09/13/23 NE. Patient reports he is doing well having some discomfort were the incision sites are. Allergies No Known Allergies Allergy (Verified 09/19/23 10:38) HPI PO Lt ACT w/ autograft 09/13/23 NE HPI Details 23-year-old male who presents in the off ice today 6 days status post left ACL reconstruction with allograft, which was performed on 09/13/[address] Beebe. The patient reports he is doing well and having some discomfort were the incision site is. He confirms participating in physical therapy but states he has not done much at this time. [facility] Medical History No pertinent past medical history Surgical History No pertinent past surgical history Social History Alcohol intake: never Patient Tobacco Use Status: Never used Tobacco Current occupational status: employed Current occupation: [employer] Review of Systems Const All systems reviewed & are unremarkable except as noted in HPI and below Physical Exam Const General: cooperative, healthy appearing and no acute distress Resp Effort & Inspection: normal respiratory effort and able to speak in complete sentences Cardio Rate: regular rate Peripheral pulses: Peripheral pulses 2+ throughout GI Palpation (GI): Soft to palpation Skin Lesions: no lesions Rashes: no rashes Extrem Other: Left knee: Incision site is clean, dry, and intact. Tibial incision site has steri-stripes which will remain in place until they fall off on their own. No surrounding erythema or drainage. No signs of infection. Able to dorsiflex and plantarflex. Calf is supple and nontender. NVI. Assessment & Plan Assessment & Plan (1) S/P ACL reconstruction: Comment: Left ACL reconstruction with allograft 09/13/2023 Dr. Evens Beebe Code(s): Z98.890 - Other specified postprocedural states Plan Mr. Gregg is a 23-year-old male who presents in the office today 6 days status post left ACL reconstruction with allograft, which was performed on 09/13/[address] Beebe. The patient reports he is doing well and having some discomfort were the incision site is. He confirms participating in physical therapy but states he has not done much at this time. Sutures were removed and steri-stripes were applied while in the office. Tibial steri-stripes will remain in place until they fall off on their own. He will attend physical therapy. Follow up will be in 4 weeks, or sooner if needed. X-rays of the left knee which were obtained while in the office today and were reviewed by me, Emperatriz Barrett PA-C, revealed endobutton with appropriate positioning on the femur. Patient Instructions: Scribed for Emperatriz Barrett PA-C by Aylin Caban medical claims representative, on 09/19/2023 at 10:29 am, EST. Coding Level of Care Code Global (11221) Diagnoses S/P ACL reconstruction Z98.890
== END 2023-09-19 11:16 | disposition home or self-care (01) ==
PROVIDERS: Visit Provider Physician Assistant
DX: Z98.890 Other specified postprocedural states (principal)
CPT/HCPCS: 99024

== ENCOUNTER 2023-10-13 10:53 | Outpatient (AMB) | payer OTHER, SELFPAY ==
--- NOTE | 2023-10-13 10:54 | MHC.OFFVIS ---
Intake Vital Signs 10/13/23 10:56 Height 6 ft Weight 173 lb BMI 23.5 Intake Visit Reasons: PO Lt ACT w/ autograft 09/13/23 NE Intake Note: Ang is a 23 year old male who presents today for a post op appointment s/p left ACT w/ autograft 09/13/23 NE. Patient reports that he is doing well. Aftre working with PT he feels a clicking in the knee at the base of the patella Allergies No Known Allergies Allergy (Verified 09/19/23 10:38) HPI PO Lt ACT w/ autograft 09/13/23 NE HPI Details Ang is a 23 year old man who presents ~1 month S/P left ACL reconstruction, with allograft. He says he is doing well, with some mild pain. He is in PT [facility] Medical History No pertinent past medical history Surgical History No pertinent past surgical history Social History Alcohol intake: never Patient Tobacco Use Status: Never used Tobacco Current occupational status: employed Current occupation: [employer] Review of Systems Const All systems reviewed & are unremarkable except as noted in HPI and below Physical Exam Vital Signs: BMI result Body Mass Index 23.5 Const General: no acute distress, alert and awake Orientation/consciousness: patient oriented x3 HEENT Head: Yes normocephalic and Yes atraumatic Eyes EOM: EOMs intact bilaterally Resp Effort & Inspection: normal respiratory effort and able to speak in complete sentences Cardio Jugular venous distension: no JVD Skin General skin exam: turgor normal Rashes: no rashes Neuro General: patient oriented x3 Extrem Other: Full ROM Inc c/d/i Stable hui's with firm endpoint Psych Appearance: grossly normal Affect: normal affect Attitude: cooperative Assessment & Plan Assessment & Plan (1) S/P ACL reconstruction: Comment: Left ACL reconstruction with allograft 09/13/2023 Dr. Evens Beebe Code(s): Z98.890 - Other specified postprocedural states Plan: Doing well with no complications. Excellent motion and quad firing PT per protocol. Discussed with patient. Plan Prepared for Evens Beebe MD by Tomas Bentley, product manager medical device, on 10/13/23 at 10:58 AM, EST. Coding Level of Care Code Global (01350) Diagnoses S/P ACL reconstruction Z98.890
[2023-10-13 10:56] VITALS: BMI 23.5
== END 2023-10-13 11:27 | disposition home or self-care (01) ==
PROVIDERS: Visit Provider Orthopaedic Surgery
DX: Z98.890 Other specified postprocedural states (principal)
CPT/HCPCS: 99024

== ENCOUNTER → 2023-10-13 10:53 | Outpatient (BNVA) | payer OTHER, SELFPAY | PROVIDERS: Visit Provider Orthopaedic Surgery ==

== ENCOUNTER 2023-11-24 11:12 | Outpatient (AMB) | payer OTHER, SELFPAY ==
[2023-11-24 11:14] VITALS: BMI 23.5
--- NOTE | 2023-11-24 11:14 | A.OFFVIS_ITS ---
Intake Vital Signs 11/24/23 11:14 Height 6 ft Weight 173 lb BMI 23.5 Intake Visit Reasons: PO Lt ACT w/ autograft 09/13/23 NE Intake Note: Ang is a 23 year old male who presents today for a post op appointment s/p left ACL w/ autograft 09/13/23 NE. Patient reports that he continues to do well, has no concerns at this time. Allergies No Known Allergies Allergy (Verified 11/24/23 11:14) HPI PO Lt ACT w/ autograft 09/13/23 NE HPI Details Ang is a 23 year old male who presents today for a post op appointment s/p left ACL w/ autograft 09/13/23 NE. Patient reports that he continues to do well, has no concerns at this time. [facility] Medical History No pertinent past medical history Surgical History (Updated 11/24/23 @ 11:17 by Ami Littlejohn CMA) History of left knee surgery (09/13/23) No pertinent past surgical history Social History Alcohol intake: never Patient Tobacco Use Status: Never used Tobacco Current occupational status: employed Current occupation: [employer] Physical Exam Vital Signs: BMI result Body Mass Index 23.5 Extrem Other: Full ROM left knee 1+ ant drawer with firm endpoint Trace ffusion Assessment & Plan Assessment & Plan (1) S/P ACL reconstruction: Comment: Left ACL reconstruction with allograft 09/13/2023 Dr. Evens Beebe Code(s): Z98.890 - Other specified postprocedural states Plan: Continue PT and HEP Sedentary work only until 01/16 Re-eval RTW status is 6 weeks Coding Level of Care Code Global (51650) Diagnoses S/P ACL reconstruction Z98.890
== END 2023-11-24 12:00 | disposition home or self-care (01) ==
PROVIDERS: Visit Provider Orthopaedic Surgery
DX: Z98.890 Other specified postprocedural states (principal)
CPT/HCPCS: 99024

== ENCOUNTER → 2023-11-24 11:12 | Outpatient (BNVA) | payer OTHER, SELFPAY | PROVIDERS: Visit Provider Orthopaedic Surgery ==

== ENCOUNTER 2023-12-13 11:00 | Outpatient (RCR) | payer OTHER, SELFPAY ==
--- NOTE | 2023-09-15 15:32 | MHC.PT.EP ---
[facility] [place] Office [place] Office [place] Office [address] [phone] F: [phone] F: [phone] F: [phone] F: [phone] Physical Therapy Plan of Care Date of Evaluation: 09/15/23 Date of Surgery: 09/13/23 Diagnosis: ACL reconstruction- allograft- L Assessment: Ang is a 23 year old male who is referred to PT for ACL L knee reconstruction . He had an allograft. He is 2 days post op today. He had the surgery secondary to traumatic rupture. On PT examination he presented with 9/10 pain in L knee, no TTP, decreased L Knee ROM, decreased L LE strength, altered posture, balance and gait. He lives with his and 2 children. He is needing assistance from his for some self care activities and all IADLS. 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 He enjoys playing basketball, baseball and football. He would benefit from skilled PT to address the aforementioned impairments and improve tolerance to functional activities. Frequency and Duration: The patient will be seen 2/week for 12 weeks Short Term Goals: 1. Pt will be able to demonstrate WBAT gait with 2 crutches in 2 weeks 2. Pt will be able to ambulate with 1 crutch in 4 weeks. 3. Pt will be able to ambulate with a unlocked brace in 5 weeks. 4. Pt will have all knee ROM WNL which will enable him to negotiate stairs without compensation in 6 weeks. Longterm Goals: 1. Pt will demonstrate an increase in muscle strength by 1 grade which will enable him to ambulate without brace or AD and without feeling of instability in 8 weeks. 2. Pt will be initiate plyometric drill without feeling on unsteadiness in 10 weeks 3. Pt will be able to initiate light jogging without pain in 12 weeks. 4. Pt will be independent with HEP and return to PLOF in 14 weeks. Treatment Plan: Modalities to reduce pain, spasms and effusion. Manual therapy to restore motion and function. Therapeutic exercise to improve strength and flexibility. Neuromuscular re-education for posture and balance. Therapeutic activities to return to functional activities of daily living. Electronically signed by: Melissa Madsen PT DPT Please sign and return to therapist. Thank you for your referral.
--- NOTE | 2024-01-15 10:39 | MHC.PT.DC ---
[facility] [place] Office [place] Office [place] Office [address] Cory Sellers [address] [phone] F: [phone] F: [phone] F: [phone] F: [phone] Physical Therapy Discharge Report Diagnosis: ACL reconstruction- allograft- L Date of Surgery: 09/13/23 Date of Evaluation: 09/15/23 Date of Discharge: 01/15/24 Treatments to Date: 18 Cancellations to Date: 7 No Shows to Date: 1 Discharge Status: Improved Function Independent with HEP Discharge Summary: pt overall feels 60-70'% back to normal. He feels his biggest barriers at this time are more mental as opposed to physical. He has returned to the gym and has been doing a combination of both strengthening and cardio work. He is returning to light duty and school soon and anticipates he will be having a difficulty attending his PT sessions. We compromised on putting him on hold for 3 weeks so he can work on his gym routine and see how returning to work and school goes. If he has any difficulties at all he will call our office for a follow-up. He is currently on hold and if we do not hear from him he will be D/C'd at that time. Electronically signed by: Nicole See PT, DPT Please sign and return to therapist. Thank you for your referral.
== END 2024-01-15 10:39 | disposition home or self-care (01) ==
LOC: HO.PT 11:00
PROVIDERS: PCP Family Medicine; Visit Provider Physician Assistant
DX: S83.512D Sprain of anterior cruciate ligament of left knee, subsequent encounter (principal)
CPT/HCPCS: 97110; 97112; 97116; 97140; 97161; 97164; 97530

== ENCOUNTER 2024-01-05 09:30 | Outpatient (AMB) | payer OTHER, SELFPAY ==
--- NOTE | 2024-01-05 09:31 | MHC.OFFVIS ---
Vital Signs 01/05/24 09:32 Height 6 ft Weight 173 lb BMI 23.5 Intake Visit Reasons: PO Lt ACT w/ autograft 09/13/23 NE Intake Note: Ang is a 23 year old male who presents today for a post op appointment s/p left ACL w/ autograft 09/13/23 NE. He is on sedentary work only until 01/16 Patient reports that he is doing well, he is still working on light duty. He presents today with paperwork to review with as his imployer is looking for more specific instructions in regards to work status. Allergies No Known Allergies Allergy (Verified 01/05/24 09:32) HPI HPI PO Lt ACT w/ autograft 09/13/23 NE: Details: [employer] 3 montsh post op doing home exercises no complaints PFSH Medical History No pertinent past medical history Surgical History (Updated 11/24/23 @ 11:17 by Ami Littlejohn CMA) History of left knee surgery (09/13/23) No pertinent past surgical history Social History Alcohol intake: never Patient Tobacco Use Status: Never used Tobacco Current occupational status: employed Current occupation: [employer] Physical Exam Vital Signs: BMI result Body Mass Index 23.5 Extrem Other: full rom stable hui's/ ant drawer Assessment & Plan Assessment & Plan (1) S/P ACL reconstruction: Comment: Left ACL reconstruction with allograft 09/13/2023 Dr. Evens Beebe Code(s): Z98.890 - Other specified postprocedural states Category: Surgical Plan: Work restriction ppwk completed cont HEP sedentary only ( no driving) standing no more than 2 hours/day f/u 3 months Coding Level of Care Code Global (84033) Diagnoses S/P ACL reconstruction Z98.890
[2024-01-05 09:32] VITALS: BMI 23.5
== END 2024-01-05 09:55 | disposition home or self-care (01) ==
PROVIDERS: Visit Provider Orthopaedic Surgery
DX: S83.512D Sprain of anterior cruciate ligament of left knee, subsequent encounter (principal)
CPT/HCPCS: 99213

== ENCOUNTER → 2024-01-05 09:30 | Outpatient (BNVA) | payer OTHER, SELFPAY | PROVIDERS: Visit Provider Orthopaedic Surgery ==

== ENCOUNTER 2024-04-08 09:10 | Outpatient (AMB) | payer OTHER, SELFPAY ==
[2024-04-08 09:22] VITALS: BMI 23.5
--- NOTE | 2024-04-08 09:22 | MHC.OFFVIS ---
Vital Signs 04/08/24 09:22 Height 6 ft Weight 173 lb BMI 23.5 Intake Visit Reasons: OV-Lt ACT w/ autograft 09/13/23 NE Intake Note: Ang is a 23 year old male who presents today for a post op appointment s/p left ACL w/ autograft 09/13/23 NE. Patient reports that he is doing well, with no concerns. He continues to work on light duty, sedentary work, no driving and no standing more than 2 hours. He is hoping to increase duty at work. He reports that he has had increased soreness of the right knee, he is unsure if this is just from overuse due to the injury of the left knee. He noticed that the pain and swelling began of last week. Allergies No Known Allergies Allergy (Verified 01/05/24 09:32) HPI HPI OV-Lt ACT w/ autograft 09/13/23 NE: Details: Ang is a 23 year old male who presents today for a post op appointment s/p left ACL w/ autograft 09/13/23 NE. Patient reports that he is doing well, with no concerns. He continues to work on light duty, sedentary work, no driving and no standing more than 2 hours. He is hoping to increase duty at work. He reports that he has had increased soreness of the right knee, he is unsure if this is just from overuse due to the injury of the left knee. He noticed that the pain and swelling began of last week. [facility] Medical History No pertinent past medical history Surgical History (Updated 04/08/24 @ 09:25 by Ami Littlejohn CMA) Hx of appendectomy (02/03/24) History of left knee surgery (09/13/23) No pertinent past surgical history Social History Alcohol intake: never Patient Tobacco Use Status: Never used Tobacco Current occupational status: employed Current occupation: [employer] Physical Exam Vital Signs: BMI result Body Mass Index 23.5 Extrem Other: Left knee with stable Benjamin's. Well-healed portals No effusion Right knee with full range of motion and trace effusion. Positive patellar grind test. Assessment & Plan Assessment & Plan (1) S/P ACL reconstruction: Comment: Left ACL reconstruction with allograft 09/13/2023 Dr. Evens Beebe Code(s): Z98.890 - Other specified postprocedural states Category: Surgical Plan: Almost 7 months status post left ACL reconstruction. Overall he is doing well. 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 I filled out his paperwork and I recommend no lifting over 20 lb and no walking greater than 2 hours and no repetitive stooping twisting and no stair climbing. He should see me back in 2 months. Coding Level of Care Code Est Pt Level 3 (61732) Diagnoses S/P ACL reconstruction Z98.890
== END 2024-04-08 09:49 | disposition home or self-care (01) ==
PROVIDERS: Visit Provider Orthopaedic Surgery
DX: S83.512D Sprain of anterior cruciate ligament of left knee, subsequent encounter (principal)
CPT/HCPCS: 99212

== ENCOUNTER → 2024-04-08 09:10 | Outpatient (BNVA) | payer OTHER, SELFPAY | PROVIDERS: Visit Provider Orthopaedic Surgery ==

== ENCOUNTER 2024-06-10 08:51 | Outpatient (AMB) | payer OTHER, SELFPAY ==
--- NOTE | 2024-06-10 08:53 | MHC.OFFVIS ---
Vital Signs 06/10/24 08:59 Height 6 ft Weight 173 lb BMI 23.5 Intake Visit Reasons: OV-Lt ACT w/ autograft 09/13/23 NE Intake Note: Ang is a 23 year old male who presents today for a post op appointment s/p left ACL w/ autograft 09/13/23 NE. 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 Allergies No Known Allergies Allergy (Verified 01/05/24 09:32) HPI HPI OV-Lt ACT w/ autograft 09/13/23 NE: Details: Ang is a 23 year old male who presents today for a post op appointment s/p left ACL w/ autograft 09/13/23 NE. 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 [facility] Medical History No pertinent past medical history Surgical History (Updated 04/08/24 @ 09:25 by Ami Littlejohn CMA) Hx of appendectomy (02/03/24) History of left knee surgery (09/13/23) No pertinent past surgical history Social History Alcohol intake: never Patient Tobacco Use Status: Never used Tobacco Current occupational status: employed Current occupation: [employer] Physical Exam Vital Signs: BMI result Body Mass Index 23.5 Extrem Other: Full normal range of motion left knee Stable Benjamin's Assessment & Plan Assessment & Plan (1) S/P ACL reconstruction: Comment: Left ACL reconstruction with allograft 09/13/2023 Dr. Evens Beebe Code(s): Z98.890 - Other specified postprocedural states Category: Surgical Plan: Patient is doing well. He may return to work without restrictions. I would abstain from competitive sports for another 3 months. Plan RTW FTRD Coding Level of Care Code Est Pt Level 3 (74740) Diagnoses S/P ACL reconstruction Z98.890
[2024-06-10 08:59] VITALS: BMI 23.5
== END 2024-06-10 09:24 | disposition home or self-care (01) ==
PROVIDERS: Visit Provider Orthopaedic Surgery
DX: S83.512D Sprain of anterior cruciate ligament of left knee, subsequent encounter (principal)
CPT/HCPCS: 99213

== ENCOUNTER → 2024-06-10 08:51 | Outpatient (BNVA) | payer OTHER, SELFPAY | PROVIDERS: Visit Provider Orthopaedic Surgery ==

== ENCOUNTER 2025-08-14 12:47 | Outpatient (REF) | payer OTHER, SELFPAY ==
--- OUTSIDE RECORDS SUMMARY | 2025-08-08 20:02 | XMS_ITS | Encounter Summary ---
Author Organization [facility] Address [address] [place] [address] Care Team Providers Care Coagulating Bath Operator Name Role Phone Edu Vernon MD Primary Care Provider [phone] Reason for Visit * Reason Comments Flank Pain + hematuria Encounter Details Date Type Department Care Team (Late st Contact Info) Description 08/08/2025 8:02 PM EST - 08/09/2025 4:54 AM EST Emergency [facility] Emergency [address] [place] [address] Discharge Disposition: Left Against Medical Advice Social History Tobacco Use Types Packs/Day Years Used Date Smoking Tobacco: Never Smokeless Tobacco: Never Alcohol Use Standard Drinks/Week Comments Not Currently 0 (1 standard drink = 0.6 oz pur e alcohol) Sex and Gender Information Value Date Recorded Sex Assigned at Not on file Legal Sex Male 2:44 PM EDT Gender Identity Not on file Sexual Orientation Not on file documented as of this encounter Last Filed Vital Signs Vital Sign Reading Time Taken Comments Blood Pressure 115/79 08/08/2025 8:05 PM EST Pulse 79 08/08/2025 8:05 PM EST Temperature 36.6 C (97.9 F) 08/08/2025 8:05 PM EST Respiratory Rate 20 08/08/2025 8:05 PM EST Oxygen Saturation 100% 08/08/2025 8:05 PM EST Inhaled Oxygen Concentration - - Weight 83 kg (183 lb) 08/08/2025 8:05 PM EST Height 182.9 cm (6') 08/08/2025 8:05 PM EST Body Mass Index 24.82 08/08/2025 8:05 PM EST documented in this encounter Functional Status * Calculated C-SSRS Risk Score (Lifetime/Recent) Answer Date of Assessment Author No Risk Indicated 08/08/2025 8:08 PM Maricarmen Jimenez RN * Lawrence Suicide Severity Rating Scale (Screener/Recent Self-Report) Question Answer Date of Assessment Author 1. Wish to be (Past 1 Month) No 025 8:08 PM Maricarmen Jimenez RN 2. Non-Specific Active Suici danitza Thoughts (Past 1 Month) No 08/08/2025 8:08 PM Shira Jimenez RN 6. Suicidal Behavior (Lifetime) No 8:08 PM Maricarmen Jimenez RN documented as of this encounter Discharge Disposition Disposition Code Departure Means Destination Left Against Medical Advice documented in this encounter Progress Notes * Maricarmen Bajwa RN - 08/08/2025 8:03 PM EST Pt c/o bilateral flank pain for one month. Pt has had two UA's with + hematuria- antibiotics not prescribed. No injury or trauma. documented in this encounter Plan of Treatment Not on file documented as of this encounter Procedures Procedure Name Priority Date/Time Associated Diagnosis Comments CBC WITH AUTO DIFFERENTIAL STAT 08/08/2025 9:02 PM EST CBC AND DIFFERENTIAL STAT 08/08/2025 9:02 PM EST COMPREHENSIVE METABOLIC PANEL STAT 08/08/2025 9:02 PM EST documented in this encounter Results * CBC auto differential (08/08/2025 9:02 PM EST) WBC 7.9 4.8 - 10.8 K/mcL LAB HEMETOLOGY METHOD 08/08/2025 9:[address] [facility] RBC 5.20 4.50 - 5.50 M/mcL LAB HEMETOLOGY METHOD 08/08/2025 9:[address] [facility] Hemoglobin 16.2 13.5 - 17.5 g/dL LAB HEMETOLOGY METHOD 08/08/2025 9:26 PM [facility] Hematocrit 46.3 42.0 - 54.0 % LAB HEMETOLOGY METHOD 08/08/2025 9:26 PM [facility] MCV 89.2 79.0 - 98.0 FL LAB HEMETOLOGY METHOD 08/08/2025 9:26 PM [facility] MCH 31.2 27.0 - 32.0 pcg LAB HEMETOLOGY METHOD 08/08/2025 9:26 PM [facility] MCHC 35.0 32.0 - 37.0 g/dL LAB HEMETOLOGY METHOD 08/08/2025 9:26 PM [facility] RDW 12.5 11.0 - 15.0 % LAB HEMETOLOGY METHOD 08/08/2025 9:26 PM [facility] Platelets 328 130 - 400 K/mcL LAB HEMETOLOGY METHOD 08/08/2025 9:26 PM [facility] MPV 9.6 7.0 - 11.0 FL LAB HEMETOLOGY METHOD 08/08/2025 9:26 PM [facility] NRBC 0.0 <1.0 % LAB HEMETOLOGY METHOD 08/08/2025 9:26 PM [facility] NRBC Absolute 0.00 <0.10 K/mcL LAB HEMETOLOGY METHOD 08/08/2025 9:26 PM [facility] Neutrophils Relative 42.9 % LAB HEMETOLOGY METHOD 08/08/2025 9:26 PM [facility] Lymphocytes Relative 42.3 % LAB HEMETOLOGY METHOD 08/08/2025 9:26 PM [facility] Monocytes Relative 10.7 % LAB HEMETOLOGY METHOD 08/08/2025 9:26 PM [facility] Eosinophils Relative 2.9 % LAB HEMETOLOGY METHOD 08/08/2025 9:26 PM [facility] Basophils Relative 0.8 % LAB HEMETOLOGY METHOD 08/08/2025 9:26 PM [facility] Immature Granulocytes Relative 0.4 % LAB HEMETOLOGY METHOD 08/08/2025 9:26 PM [facility] Neutrophils Absolute 3.41 1.50 - 7.00 K/mcL LAB HEMETOLOGY METHOD 08/08/2025 9:26 PM [facility] Lymphocytes Absolute 3.36 1.00 - 5.00 K/mcL LAB HEMETOLOGY METHOD 08/08/2025 9:26 PM [facility] Monocytes Absolute 0.85 0.20 - 1.00 K/mcL LAB HEMETOLOGY METHOD 08/08/2025 9:26 PM [facility] Eosinophils Absolute 0.23 0.00 - 0.50 K/mcL LAB HEMETOLOGY METHOD 08/08/2025 9:26 PM [facility] Basophils Absolute 0.06 0.00 - 0.20 K/mcL LAB HEMETOLOGY METHOD 08/08/2025 9:26 PM [facility] Immature Granulocytes Absolute 0.03 0.00 - 0.03 K/mcL LAB HEMETOLOGY METHOD 08/08/2025 9:26 PM [facility] Blood Venous blood specimen / Unknown Venipuncture / Unknown 08/08/2025 9:02 PM EST 08/08/2025 9:18 PM EST us Reese Hercules MD LAB BLOOD ORDERABLES Rubina l Result [facility] [address] [place] [address], * Comprehensive metabolic panel (08/08/2025 9:02 PM EST) Sodium 139 133 - 145 mmol/L 08/08/2025 9:53 PM [facility] Potassium 4.4 3.5 - 5.5 mmol/L 08/08/2025 9:53 PM [facility] Chloride 103 96 - 110 mmol/L 08/08/2025 9:53 PM [facility] CO2 29 21 - 32 mmol/L 08/08/2025 9:53 PM [facility] Anion Gap 7 3 - 11 08/08/2025 9:53 PM [facility] Glucose 79 70 - 100 mg/dL 08/08/2025 9:53 PM [facility] BUN 16 5 - 25 mg/dL 08/08/2025 9:53 PM [facility] Creatinine 1.19 0.70 - 1.30 mg/dL 08/08/2025 9:53 PM [facility] eGFR 86 >=60 mL/min/1. 73m2 08/08/2025 9:53 PM [facility] Comment:Calculation based on the Chronic Kidney Disease Epidemiology Collaboration (CKD-EPI) equation refit without adjustment for race. BUN/Creatinine Ratio 13.4 08/08/2025 9:53 PM [facility] Calcium 9.4 8.5 - 10.5 mg/dL 08/08/2025 9:53 PM [facility] AST (SGOT) 16 10 - 42 unit/L 08/08/2025 9:53 PM [facility] ALT (SGPT) 15 10 - 60 unit/L 08/08/2025 9:53 PM [facility] Alkaline Phosphatase 90 42 - 121 unit/L 08/08/2025 9:53 PM [facility] Total Protein 7.1 6.0 - 8.0 g/dL 08/08/2025 9:53 PM [facility] Albumin 4.3 3.2 - 5.0 g/dL 08/08/2025 9:[address] [facility] Total Bilirubin 0.4 0.0 - 1.4 mg/dL 08/08/2025 9:[address] [facility] Blood Venous blood specimen / Unknown Venipuncture / Unknown 08/08/2025 9:02 PM EST 08/08/2025 9:18 PM EST us Reese Hercules MD LAB BLOOD ORDERABLES Rubina l Result [facility] [address] [place] [address], documented in this encounter Visit Diagnoses Not on filedocumented in this encounter Care Teams Coagulating Bath Operator Relationship Specialty Start Date End Date Edu Vernon MD [address] [place] [id number] PCP - General Internal Medicine 11/25/19 documented as of this encounter
[2025-08-14 13:59] LABS: MANUAL DIFF FLAG NO
[2025-08-14 14:52] LABS: Hematocrit 47.9 % (42.0-52.0); Hemoglobin 16.3 g/dl (14.0-18.0); Imm Gran Abs Auto 0.02 X10*3/uL (0.00-0.03); Imm Gran Pct Auto 0.3 % (0.0-0.4); Lymphocytes Absolute Auto 2.9 X10*3/uL (1.2-4.9); Mean Corpuscular HGB Conc 34.0 g/dl (31.0-36.0); Mean Corpuscular Hemoglobin 30.8 pg (27.0-33.0); Mean Corpuscular Volume 90.4 fL (80.0-98.0); NRBC Abs Auto 0.000 X10*3/uL (0.0-0.012); NRBC Pct Auto 0.0 /100WBC (0.0-0.2); Platelet Count 328 X10*3/uL (160-400); Red Blood Count 5.30 X10*6/uL (4.60-5.80); White Blood Count 7.9 X10*3/uL (4.8-10.8)
[2025-08-14 15:18] LABS: Appearance Urine Clear; Glucose Urine UA Negative (Negative); PH 7.5 (5.0-9.0); Specific Gravity - Urine 1.020 (1.005-1.025); UMIC TRIGGER UA YES
[2025-08-14 15:34] LABS: Total Protein Urine Random 44 mg/dL (<12)
[2025-08-14 16:02] LABS: Alanine Aminotransferase 20 U/L (0-40); Albumin Level 4.3 g/dL (3.5-5.0); Alkaline Phosphatase 77 U/L (39-117); Anion Gap 11 (12-20); Aspartate Amino Transferase 21 U/L (5-37); Blood Urea Nitrogen 14 mg/dL (9-16); Calcium 9.1 mg/dL (8.4-10.2); Carbon Dioxide 28 mmol/L (22-29); Chloride 105 mmol/L (96-108); Estimated Glomerular Filt Rate > 60; Potassium 3.6 mmol/L (3.3-5.1); Sodium 140 mmol/L (135-145); Total Protein 7.0 g/dL (6.5-8.0)
[2025-08-14 16:19] LABS: CT PCR Urine NOT DETECTED (Not Detect.); NG PCR Urine NOT DETECTED (Not Detect.)
--- OUTSIDE RECORDS SUMMARY | 2025-08-14 21:03 | XMS_ITS | Clinical Summary ---
Author Organization Patient Business Ser [facility] Address [address] [place] [address] Care Team Providers Care Egg Trayer Name Role Phone Edu Vernon MD Primary Care Provider Allergies No known active allergies Encounters Date Type Department Care Team Description 08/08/2025 8:02 PM EST - 08/09/2025 4:54 AM EST Emergency [facility] Emergency [address] [place] [address] Discharge Disposition: Left Against Medical Advice from Last 3 Months Surgical History Surgery Date Site/Laterality Comments OTHER SURGICAL HISTORY PROCEDURE: DENIES PREVIOUS SURGERY APPENDECTOMY Medical History Medical History Date Comments 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 Asthma 11/25/2019 DX:Asthma Asthma DX:Asthma Family History Medical History Relation Name Comments No Known Problems Brother 1 No Known Problems Brother 2 Asthma Father Arthritis Maternal Grandmother No Known Problems Mother Diabetes Paternal Grandmother No Known Problems Sister Relation Name Status Comments Brother 1 Alive Brother 2 Alive Father Alive Maternal Grandmother Alive Mother Alive Paternal Grandmother Alive Sister Alive Social History Tobacco Use Types Packs/Day Years Used Date Smoking Tobacco: Never Smokeless Tobacco: Never Alcohol Use Standard Drinks/Week Comments Not Currently 0 (1 standard drink = 0.6 oz pur e alcohol) Sex and Gender Information Value Date Recorded Sex Assigned at Not on file Legal Sex Male 2:44 PM EDT Gender Identity Not on file Sexual Orientation Not on file Last Filed Vital Signs Vital Sign Reading [...] Mass Index 24.82 08/08/2025 8:05 PM EST Plan of Treatment Health Maintenance Due Date Last Done Comments Pneumococcal Vaccine: Pediatrics (0 to 5 Years) and At-Risk Patients (6 to 49 Years) (1 of 2 - PCV) 2017 HIV Screening 03/28/2020 Hepatitis C Screening 03/28/2020 Social Influencers of Health Screening 03/28/2020 Depression Screening 09/04/2024 COVID-19 Vaccine ( - season) 2025 Influenza Vaccine (#1) 2025 0, 08/16/2017, 08/04/2016, Additional history exists DTaP,Tdap,and Td Vaccines (8 - Td or Tdap) 06/03/2030 06/03/2020, 01/05/2011, 08/22/2002, Additional history exists RSV Immunization Adult Patients (1 - 1-dose 75+ series) 2073 Hepatitis B Vaccines Completed 02/09/1999, 1998, 1998 HIB Vaccines Completed 11/03/1999, 0 09/1999, 02/09/1999, Additional history exists IPV Vaccines Completed 08/22/2002, 0 09/1999, 07/21/1999, Additional history exists MMR Vaccines Completed 08/22/2002, 07/21/1999 Varicella Vaccines Completed 12/20/2007, 07/21/1999 HPV Vaccines Completed 05/01/2013, 04/05, 02/22/2012 Hepatitis A Vaccines Completed 01/01/2014, 01/25/2011, 01/05/2011 Meningococcal ACWY Vaccine Completed 07/20, 01/25/2011, 01/05/2011 Meningococcal B Vaccine Aged Out No l onger eligible based on patient's age to complete this topic RSV Immunization Patients Under 20 months Aged Out No longer eligible based on patient's age to complete this topic Procedures Procedure Name Priority Date/Time Associated Diagnosis Comments CBC WITH AUTO DIFFERENTIAL STAT 08/08/2025 9:02 PM EST COMPREHENSIVE METABOLIC PANEL STAT 08/08/2025 9:02 PM EST CBC AND DIFFERENTIAL STAT 08/08/2025 9:02 PM EST from Last 3 Months Results * CBC auto differential (08/08/2025 9:02 PM EST) WBC 7.9 4.8 - 10.8 K/mcL LAB HEMETOLOGY METHOD 08/08/2025 9:26 PM [facility] RBC 5.20 4.50 - 5.50 M/mcL LAB HEMETOLOGY METHOD 08/08/2025 9:26 PM [facility] Hemoglobin 16.2 13.5 - 17.5 g/dL LAB HEMETOLOGY METHOD 08/08/2025 9:26 PM [facility] Hematocrit 46.3 42.0 - 54.0 % LAB HEMETOLOGY METHOD 08/08/2025 9:26 PM [facility] MCV 89.2 79.0 - 98.0 FL LAB HEMETOLOGY METHOD 08/08/2025 9:26 PM [facility] MCH 31.2 27.0 - 32.0 pcg LAB HEMETOLOGY METHOD 08/08/2025 9:26 PM [facility] MCHC 35.0 32.0 - 37.0 g/dL LAB HEMETOLOGY METHOD 08/08/2025 9:26 PM [facility] RDW 12.5 11.0 - 15.0 % LAB HEMETOLOGY METHOD 08/08/2025 9:26 PM [facility] Platelets 328 130 - 400 K/mcL LAB HEMETOLOGY METHOD 08/08/2025 9:26 PM [facility] MPV 9.6 7.0 - 11.0 FL LAB HEMETOLOGY METHOD 08/08/2025 9:26 PM [facility] NRBC 0.0 <1.0 % LAB HEMETOLOGY METHOD 08/08/2025 9:26 PM [facility] NRBC Absolute 0.00 <0.10 K/mcL LAB HEMETOLOGY METHOD 08/08/2025 9:26 PM [facility] Neutrophils Relative 42.9 % LAB HEMETOLOGY METHOD 08/08/2025 9:26 PM [facility] Lymphocytes Relative 42.3 % LAB HEMETOLOGY METHOD 08/08/2025 9:26 PM [facility] Monocytes Relative 10.7 % LAB HEMETOLOGY METHOD 08/08/2025 9:26 PM [facility] Eosinophils Relative 2.9 % LAB HEMETOLOGY METHOD 08/08/2025 9:26 PM [facility] Basophils Relative 0.8 % LAB HEMETOLOGY METHOD 08/08/2025 9:26 PM [facility] Immature Granulocytes Relative 0.4 % LAB HEMETOLOGY METHOD 08/08/2025 9:26 PM [facility] Neutrophils Absolute 3.41 1.50 - 7.00 K/mcL LAB HEMETOLOGY METHOD 08/08/2025 9:26 PM [facility] Lymphocytes Absolute 3.36 1.00 - 5.00 K/mcL LAB HEMETOLOGY METHOD 08/08/2025 9:26 PM [facility] Monocytes Absolute 0.85 0.20 - 1.00 K/mcL LAB HEMETOLOGY METHOD 08/08/2025 9:26 PM [facility] Eosinophils Absolute 0.23 0.00 - 0.50 K/mcL LAB HEMETOLOGY METHOD 08/08/2025 9:26 PM [facility] Basophils Absolute 0.06 0.00 - 0.20 K/mcL LAB HEMETOLOGY METHOD 08/08/2025 9:26 PM [facility] Immature Granulocytes Absolute 0.03 0.00 - 0.03 K/mcL LAB HEMETOLOGY METHOD 08/08/2025 9:26 PM [facility] Blood Venous blood specimen / Unknown Venipuncture / Unknown 08/08/2025 9:02 PM EST 08/08/2025 9:18 PM EST us Reese Hercules MD LAB BLOOD ORDERABLES Rubina l Result [facility] [address] [place] [address], * Comprehensive metabolic panel (08/08/2025 9:02 PM EST) Sodium 139 133 - 145 mmol/L 08/08/2025 9:53 PM [facility] Potassium 4.4 3.5 - 5.5 mmol/L 08/08/2025 9:53 PM [facility] Chloride 103 96 - 110 mmol/L 08/08/2025 9:53 PM [facility] CO2 29 21 - 32 mmol/L 08/08/2025 9:53 PM [facility] Anion Gap 7 3 - 11 08/08/2025 9:53 PM [facility] Glucose 79 70 - 100 mg/dL 08/08/2025 9:53 PM [facility] BUN 16 5 - 25 mg/dL 08/08/2025 9:53 PM [facility] Creatinine 1.19 0.70 - 1.30 mg/dL 08/08/2025 9:53 PM [facility] eGFR 86 >=60 mL/min/1. 73m2 08/08/2025 9:53 PM [facility] Comment:Calculation based on the Chronic Kidney Disease Epidemiology Collaboration (CKD-EPI) equation refit without adjustment for race. BUN/Creatinine Ratio 13.4 08/08/2025 9:53 PM [facility] Calcium 9.4 8.5 - 10.5 mg/dL 08/08/2025 9:53 PM [facility] AST (SGOT) 16 10 - 42 unit/L 08/08/2025 9:53 PM [facility] ALT (SGPT) 15 10 - 60 unit/L 08/08/2025 9:53 PM [facility] Alkaline Phosphatase 90 42 - 121 unit/L 08/08/2025 9:53 PM [facility] Total Protein 7.1 6.0 - 8.0 g/dL 08/08/2025 9:53 PM [facility] Albumin 4.3 3.2 - 5.0 g/dL 08/08/2025 9:53 PM [facility] Total Bilirubin 0.4 0.0 - 1.4 mg/dL 08/08/2025 9:53 PM [facility] Blood Venous blood specimen / Unknown Venipuncture / Unknown 08/08/2025 9:02 PM EST 08/08/2025 9:18 PM EST us Reese Hercules MD LAB BLOOD ORDERABLES Rubina l Result [facility] [address] [place] [address], from Last 3 Months Insurance Care Teams Egg Trayer Relationship Specialty Start Date End Date Edu Vernon MD [address] [place] [address] [place] [id number] PCP - General Internal Medicine 11/25/19
--- OUTSIDE RECORDS SUMMARY | 2025-08-14 21:03 | XMS_ITS | Encounter Summary ---
Author Organization [facility] Address [address] [place] [address] Phone Care Team Providers Care Travel Nurse Name Role Phone Unavailable Primary Care Provider Unavailabl e Encounter Details Date Type Department Care Team (Late st Contact Info) Description 04/20/2017 Conversion Encounter [facility] - [address] [address] Social History Tobacco Use Types Packs/Day Years Used Date Smoking Tobacco: Never Comments:Never smoker Sex and Gender Information Value Date Recorded Sex Assigned at Not on file Legal Sex Male 5:15 PM EDT Gender Identity Not on file Sexual Orientation Not on file documented as of this encounter Plan of Treatment Not on file documented as of this encounter Visit Diagnoses Not on filedocumented in this encounter
--- OUTSIDE RECORDS SUMMARY | 2025-08-14 21:03 | XMS_ITS | Encounter Summary ---
Author Organization [facility] Address [address] [place] [address] Phone Care Team Providers Care Ultrasonic Cleaner Name Role Phone Unavailable Primary Care Provider Unavailabl e Encounter Details Date Type Department Care Team (Late st Contact Info) Description 12/05/2011 Documentation [facility] [place] [facility] [place] [address] [place] [address] Family Medicine, Physician [address] [place] [address] Social History Tobacco Use Types Packs/Day Years Used Date Smoking Tobacco: Never Assessed Sex and Gender Information Value Date Recorded Sex Assigned at Not on file Legal Sex Male 5:15 PM EDT Gender Identity Not on file Sexual Orientation Not on file documented as of this encounter Plan of Treatment Not on file documented as of this encounter Visit Diagnoses Not on filedocumented in this encounter
--- OUTSIDE RECORDS SUMMARY | 2025-08-14 21:03 | XMS_ITS | Encounter Summary ---
Author Organization [facility] Address [address] [place] [address] Phone Care Team Providers Care Certified Diabetes Educator Name Role Phone Unavailable Primary Care Provider Unavailabl e Encounter Details Date Type Department Care Team (Late st Contact Info) Description 02/04/2014 Documentation [facility] [place] [address] [place] [address] Family Medicine, Physician [address] [place] [address] Social History Tobacco Use Types Packs/Day Years [...]
--- OUTSIDE RECORDS SUMMARY | 2025-08-14 21:03 | XMS_ITS | Encounter Summary ---
Author Organization [facility] Address [address] [place] [address] Phone Care Team Providers Care Patent Chemist Name Role Phone Unavailable Primary Care Provider Unavailabl e Encounter Details Date Type Department Care Team (Late st Contact Info) Description 07/01/2014 [place] [facility] [place] [address] [place] [address] Family Medicine, Physician [address] [place] [address] Social History Tobacco Use Types Packs/Day Years [...]
--- OUTSIDE RECORDS SUMMARY | 2025-08-14 21:03 | XMS_ITS | Clinical Summary ---
Author Organization [facility] Address [address] [place] [address] Phone Care Team Providers Care Fiscal Analyst Name Role Phone Unavailable Primary Care Provider Unavailabl e Allergies No known active allergies Medications albuterol HFA (PROAIR HFA) 108 (90 BASE) MCG/ACT inhaler PROAIR HFA; inhale 2 puff by inhalation route every 4 - 6 hours as needed; 90 MCG; 08/04/2016; Active 6 Active Active Problems Problem Noted Date Diagnosed Date Pectus carinatum 08/16/2017 Mild intermittent asthma without complication Immunizations Immunization Administration Dates Next Due DTP 1998,1998 DTaP 5 08/22/2002,02/15/2000,02/09/1999 H1N1 10/28/2009 HPV, Quadrivalent 05/01/2013,05/01/2012,02/22/20 12 Hep A, ped/adol 01/01/2014,01/05/2011 Hep B, ped/adol 02/09/1999,1998,1998 Hib (PRP-T) 11/03/1999, 9,1998,10/06 IPV 08/22/2002,1998,1998 Influenza Split 11/01/2011 Influenza, injectable, MDCK, preservative free, quadrivalent 08/04/2016 Influenza, injectable, quadrivalent 2015,1 09/15/2013 Influenza, injectable, quadr ivalent, preservative free 08/16/2017 Influenza, intranasal, quadrivalent 05/01/2013 MMR 08/22/2002,07/21/1999 Meningococcal Conj (Menactra) MCV4P 2015,0 01/05/2011 OPV 07/21/1999 Tdap 01/05/2011 Varicella 12/20/2007,07/21/1999 Family History Relation Name Status Comments Brother 1 Alive Brother: Alive and well, Alive and well Brother 2 Alive Brother: Alive and well, Alive and well Father Alive Father: Asthma Mother Alive Mother: Alive a nd well Other 1 Patient: Asthma Other 2 Close relative: Cancer, brain Other 3 No family histo ry of Thrombophilia, No family history of Heart disease, No family history of CVA (Stroke), No family history of Dental caries, No family history of Sudden /PR under age 55 Social History Tobacco Use Types Packs/Day Years Used Date Smoking Tobacco: Never Smokeless Tobacco: Never Comments:Never smoker Alcohol Use Standard Drinks/Week Comments No 0 (1 standard drink = 0.6 oz pur e alcohol) Sex and Gender Information Value Date Recorded Sex Assigned at Not on file Legal Sex Male 5:15 PM EDT Gender Identity Not on file Sexual Orientation Not on file Last Filed Vital Signs Vital Sign Reading Time Taken Comments Blood Pressure 115/80 04/03/2019 11:09 AM EDT Pulse 73 04/03/2019 11:09 AM EDT Temperature 36.2 C (97.2 F) 04/03/2019 11:09 AM EDT Respiratory Rate - - Oxygen Saturation - - Inhaled Oxygen Concentration - - Weight 76.1 kg (167 lb 12.8 oz) 019 11:09 AM EDT Height 179.7 cm (5' 10.75 ) 04/03/2019 11:09 AM EDT Body Mass Index 23.57 04/03/2019 11:09 AM EDT Plan of Treatment Health Maintenance Due Date Last Done Comments DTaP,Tdap,and Td Vaccines (7 - Td or Tdap) 01/05/2021 01/05/2011, 08/22/2002, 02/15/2000, Additional history exists Influenza Vaccines (#1) 2025 08/16/20 17, 08/04/2016, 2015, Additional history exists COVID-19 Vaccine (1 - season) 2025 Hepatitis B Vaccines Completed 02/09/1999, 1998, 1998 HIB Vaccines Completed 11/03/1999, 04/1999, 1998, Additional history exists IPV Vaccines Completed 08/22/2002, 07/05, 1998, Additional history exists MMR Vaccines Completed 08/22/2002, 07/21/1999 Varicella Vaccines Completed 12/20/2007, 07/21/1999 HPV Vaccines Completed 05/01/2013, 04/05, 02/22/2012 Hepatitis A Vaccines Completed 01/01/2014, 01/06/20 11 Meningococcal Vaccine Completed 2015, 011 Men B Vaccine Aged Out No longer elig ible based on patient's age to complete this topic Pneumococcal Vaccine Aged Out No long er eligible based on patient's age to complete this topic Insurance [facility] NON PCC
--- OUTSIDE RECORDS SUMMARY | 2025-08-14 21:03 | XMS_ITS | Encounter Summary ---
Author Organization [facility] Address [address] [place] [address] Phone Care Team Providers Care Chief Dispatcher Name Role Phone Unavailable Primary Care Provider Unavailabl e Encounter Details Date Type Department Care Team (Late st Contact Info) Description 10/09/2012 [place] [facility] [place] [address] [place] [address] Family Medicine, Physician [address] [place] [address] Social History Tobacco Use Types Packs/Day Years [...]
--- OUTSIDE RECORDS SUMMARY | 2025-08-14 21:03 | XMS_ITS | Encounter Summary ---
Author Organization [facility] Address [address] [place] [address] Phone Care Team Providers Care [employer]om Storage Name Role Phone Unavailable Primary Care Provider Unavailabl e Encounter Details Date Type Department Care Team (Late st Contact Info) Description 01/03/2014 [place] [facility] [place] [address] [place] [address] Family Medicine, Physician [address] [place] [address] Social History Tobacco Use Types Packs/Day Years [...]
--- OUTSIDE RECORDS SUMMARY | 2025-08-14 21:03 | XMS_ITS | Clinical Summary ---
Author Organization [facility] Prior to 02/01/[address] [place] [id number] Care Team Providers Care Clay Washer Name Role Phone Unavailable Primary Care Provider Unavailabl e Allergies No known active allergies Medications No known medications Social History Tobacco Use Types Packs/Day Years Used Date Smoking Tobacco: Never Smokeless Tobacco: Never Alcohol Use Standard Drinks/Week Comments Not Currently 0 (1 standard drink = 0.6 oz pur e alcohol) Sex and Gender Information Value Date Recorded Sex Assigned at Not on file Gender Identity Not on file Sexual Orientation Not on file Job Start Date Occupation Industry Not on file Not on file Not on file Last Filed Vital Signs Vital Sign Reading Time Taken Comments Blood Pressure - - Pulse - - Temperature - - Respiratory Rate - - Oxygen Saturation - - Inhaled Oxygen Concentration - - Weight 78.9 kg (174 lb) 11/18/2021 3:43 PM EDT Height 182.9 cm (6') 11/18/2021 3:43 PM EDT Body Mass Index 23.6 11/18/2021 3:43 PM EDT Plan of Treatment Health Maintenance Due Date Last Done Comments Hepatitis B Vaccines (1 of 3 - 3-dose series) 1998 Hepatitis C Screening 1998 COVID-19 Vaccine (#1) 01/17/1999 Depression Screening 2010 Preventative Health Evaluation 2016 Influenza Vaccine (#1) 2025 0, 08/16/2017, 08/04/2016, Additional history exists DTap / Tdap / Td (8 - Td or Tdap) 06/03/2030 06/03/2020, 01/05/2011, 08/22/2002, Additional history exists Pneumococcal Vaccine Aged Out No long er eligible based on patient's age to complete this topic RSV Ped < 20 months Aged Out No longe r eligible based on patient's age to complete this topic
--- OUTSIDE RECORDS SUMMARY | 2025-08-14 21:04 | XMS_ITS | Encounter Summary ---
Author Organization [facility] Address [address] [place] [address] Phone Care Team Providers Care Vice President Sales Name Role Phone Unavailable Primary Care Provider Unavailabl e Encounter Details Date Type Department Care Team (Late st Contact Info) Description 10/09/2012 [place] [facility] [place] [address] [place] [address] Family Medicine, Physician [address] [place] [address] Social History Tobacco Use Types Packs/Day Years [...]
[2025-08-15 16:32] LABS: Urea, Random Urine 895 mg/dL
== END 2025-08-14 12:48 | disposition home or self-care (01) ==
LOC: HO.LAB 12:47
PROVIDERS: PCP Student in an Organized Health Care Education/Training Program; Visit Provider Student in an Organized Health Care Education/Training Program
DX: Z00.00 Encounter for general adult medical examination without abnormal findings (principal); R31.0 Gross hematuria; R80.9 Proteinuria, unspecified; M54.50 Low back pain, unspecified
CPT/HCPCS: 80053; 81001; 82436; 82570; 84133; 84156; 84300; 84540; 85025; 87491; 87591; 99385

== ENCOUNTER 2025-08-14 12:47 | Outpatient (AMB) | payer OTHER, SELFPAY ==
--- NOTE | 2025-08-14 12:49 | MHC.PC.OV ---
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 Accompanied by: Self / Same As Patient Allergies No Known Allergies Allergy (Verified 08/14/25 12:50) Medication List - Last Reconciled 08/14/25 by Sukhjinder Miranda MD acetaminophen 500 mg PO Q6H PRN Tobacco use date assessed: 08/14/25 Dental Screening Dental Screen Date: 08/14/25 Did you have a dental visit in the last 12 months?: No Did you have a dental problem in the last 6 months where you did not have access to dental care?: Yes Was dental information given to patient?: Patient has dentist HPI HPI Comments History of Present Illness Details History of Present Illness The patient is a 25 year old male presenting for follow-up on abnormal urinalysis results showing proteinuria and hematuria, discovered during a work-related physical. The patient reports he was asymptomatic prior to the testing. Following the urinalysis, the patient developed back pain, which he noticed a day or two after the work physical. Initially, the pain was persistent and severe, rated as 7 out of 10, and was located on both flanks. The pain was relieved by Tylenol and has since resolved to intermittent flares. He denies any association of the pain with urination, such as burning or relief with voiding. The patient's past medical history is significant for left ACL surgery and an appendectomy. His maternal grandfather has a history of diabetes, but there is no other family history of heart disease, diabetes, or cancer. He denies smoking, illicit drug use, and has no known allergies. He reports occasional alcohol use, consuming one to two drinks per occasion. Medical History: - No active or past medical conditions reported. Surgical History: - Left ACL surgery - Appendectomy Medications: - Tylenol for back pain. Family History: - Diabetes: Maternal grandfather - Denies family history of heart disease or cancer. Diagnostic Results: - Urinalysis: 2+ protein and a large amount of blood. - Blood work: Overall good, with normal electrolytes and kidney function, though the latter is on the higher side of normal. Social History - Substance Use: Denies smoking, marijuana, heroin, cocaine, or other IV drugs. - Alcohol Use: Occasional use of 1-2 drinks. - Sexual History: Reports not being very sexually active and denies any discharge. 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 - Exercise: Goes to the gym. [facility], [facility] Medical History (Updated 08/14/25 @ 13:16 by Sukhjinder Miranda MD) Annual physical exam Back pain Hematuria No pertinent past medical history Surgical History (Updated 04/08/24 @ 09:25 by Ami Littlejohn CMA) Hx of appendectomy (02/03/24) History of left knee surgery (09/13/23) No pertinent past surgical history Social History Housing: Apartment Alcohol intake: never Patient Tobacco Use Status: Never used Tobacco e-Cigarette/Vaping Use: Never Used service: Yes Current occupational status: student Questionnaire PHQ-9 Over the last 2 weeks, how often have you been bothered by any of the following problems? 1. Little interest or pleasure in doing things: not at all 2. Feeling down, depressed, or hopeless: not at all 3. Trouble falling or staying asleep, or sleeping too much: several days 4. Feeling tired or having little energy: not at all 5. Poor appetite or overeating: not at all 6. Feeling bad about yourself - or that you are a failure or have let yourself or your family down: not at all 7. Trouble concentrating on things, such as reading the newspaper or watching television: not at all 8. Moving or speaking so slowly that other people could have noticed. Or the opposite - being so fidgety or restless that you have been moving around a lot more than usual: not at all 9. Thoughts that you would be better off or of hurting yourself in some way: not at all Total score: 1 Source: Developed by Drs. Rudolph Pepe, Vani Tinsley, Shantanu Kirby and colleagues, with an educational yuki from [employer] Thrive Questionnaire Date Thrive assessed: 08/14/25 I am a: Patient What is your living situation today?: I have a steady place to live Within the past 12 months, did the food you bought not last and you didn't have the money to get more?: Never true Within the past 12 months, did you worry whether your food would run out before you got money to buy more?: Never true Do you have trouble paying for medicines?: No Do you have trouble getting transportation to medical appointments?: No Do you have trouble paying your heating and electricity bill?: Yes Do you have trouble taking care of your child, family member or friend?: No Do you have trouble with day-to-day activities such as bathing, preparing meals, shopping, managing finances, etc.?: No Are you currently unemployed and looking for a job?: No Are you interested in more education?: No THRIVE Score: 1 AUDIT C Alcohol Use Questionnaire (AUDIT-C) 1. How often do you have a drink containing alcohol?: Monthly or less 2. How many drinks containing alcohol do you have on a typical day when you are drinking?: 1 or 2 3. How often do you have six or more drinks on one occasion?: Never Total Score: 1 Score Reviewed/Action Taken: Yes KAI-7 AMB Questionnaire KAI-7 Date KAI - 7 assessed: 08/14/25 Feeling nervous, anxious, or on edge: 1 = Several days Not being able to stop or control worryin = Not at all Worrying too much about different things: 1 = Several days Trouble relaxin = Not at all Being so restless that it is hard to sit still: 0 = Not at all Becoming easily annoyed or irritable: 0 = Not at all Feeling afraid as if something awful might happen: 0 = Not at all Total KAI-7 score (0-4 normal; 5-9 mild; 10-14 moderate; 15-21 severe): 2 Source: Developed by Drs. Rudolph Pepe, Vani Tinsley, Shantanu Kirby and colleagues, with an educational yuki from [employer] Review of Systems Narrative Review of Systems - General: Reports feeling good overall. - Constitutional: Denies fevers or chills. - Genitourinary: Reports flank pain that is now intermittent. - Denies hematuria, dysuria, penile discharge, history of kidney stones, or urinary tract infections. - Cardiovascular: Denies chest pain. - Respiratory: Denies shortness of breath. - Gastrointestinal: Denies nausea or vomiting. - Neurological: Denies headaches or vision loss. - Psychiatric: Reports good mood. All systems reviewed & are unremarkable except as reviewed in HPI and above Physical exam (Primary Care) Vital Signs: Last Vital Signs Temp 98.1 F 08/14/25 12:56 Pulse 80 08/14/25 12:56 Resp 16 08/14/25 12:56 BP 108/72 08/14/25 12:56 Pulse Ox 96 08/14/25 12:56 Oxygen Delivery Method Room Air 08/14/25 12:56 BMI result Body Mass Index 25.7 Tobacco/Smoking Status: Tobacco use Status Tobacco use date assessed 08/14/25 08/14/25 12:52 Patient Tobacco Use Status Never used Tobacco 08/14/25 12:52 e-Cigarette/Vaping Use Never Used 08/14/25 12:58 PHQ-9: PHQ-9 Score PHQ-9: Total score 1 08/14/25 13:01 Thrive Assessment: Date of Thrive Assessment Date Thrive assessed 08/14/25 08/14/25 12:52 Narrative Physical Exam General: +Alert and oriented, Well nourished, No acute distress. Eye: Pupils are equal, round and reactive to light, Intact accommodation, Extraocular movements are intact, Normal conjunctiva, Vision unchanged. HENT: Normocephalic, Atraumatic, Tympanic membranes are clear, Normal hearing, Oral mucosa is moist, No pharyngeal erythema, Ear canals patent. Respiratory: Lungs CTA bilaterally, No wheeze, Respirations are non-labored. Cardiovascular: Regular rate, Regular rhythm, S1 auscultated, S2 auscultated, No murmur, Good pulses equal in all extremities, Normal peripheral perfusion, No edema. Gastrointestinal: Soft, Non-tender, Non-distended, Normal bowel sounds, No organomegaly. Musculoskeletal: Normal range of motion, Normal strength, No tenderness, No swelling, No deformity, Normal gait. Integumentary: Warm, Dry, Tornado, Intact. Neurologic: Alert, Oriented, Normal sensory, Normal motor function, No focal defects, Cranial Nerves II-XII are grossly intact, Normal deep tendon reflexes. Psychiatric: Cooperative, Appropriate mood & affect, Normal judgment. 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 - The differential includes kidney-related causes or a genetic predisposition. - The current kidney function is normal, although on the higher side. - The plan is to order a repeat urinalysis, further blood work including kidney function tests, and an ultrasound of the kidneys. - Referrals will be made to both a urologist and a club attendant for further evaluation and possible cystoscopy. Code(s): R31.9 - Hematuria, unspecified Category: Medical Qualifiers: Hematuria type: gross Qualified Code(s): R31.0 - Gross hematuria (2) Back pain: Comment: - The patient developed bilateral flank pain after his physical, which was initially severe but has improved to intermittent flares with Tylenol. - Physical exam revealed internal tenderness on back palpation. - The patient was advised to continue using Tylenol for pain and to avoid ibuprofen due to potential kidney effects. - He was instructed to go to the emergency room if he develops worsening back pain, fevers, or chills, as this could signify a kidney infection. Code(s): M54.9 - Dorsalgia, unspecified Category: Medical Qualifiers: Back pain location: low back pain Chronicity: acute Back pain laterality: bilateral Sciatica presence: without sciatica Qualified Code(s): M54.50 - Low back pain, unspecified (3) Annual physical exam: Comment: - The patient received COVID and flu shots. - A follow-up visit is scheduled in three months to review results and reassess his condition. Code(s): Z00.00 - Encounter for general adult medical examination without abnormal findings Category: Medical Plan: Health Maintenance: - Patient has received COVID and flu shots. Patient was informed and verbally consented to the use of an ambient scribe for clinic note documentation during this visit. Vital signs reviewed. Comprehensive history, review of systems, and physical exam completed. Medications, allergies, and problem list reviewed and updated. Counseling provided on nutrition, regular exercise, sleep hygiene, and moderation of alcohol use. Discussed age-appropriate screenings (mammogram, colonoscopy, Pap, bone density) and immunizations (flu, COVID, shingles, Tdap). Screened for depression, fall risk, and home safety; no current concerns. Discussed stress management, dental and vision care, and importance of ongoing preventive follow-up. Routine labs ordered for metabolic and lipid screening. Patient educated on healthy lifestyle and agrees with the plan. Plan I informed the patient that his recent urinalysis showed 2+ protein and a large amount of blood. I explained that this could be due to various causes, including kidney issues or a genetic predisposition, and that while his blood work and kidney function are currently reassuring, further investigation is necessary. I have ordered a repeat urinalysis, additional blood work, and a kidney ultrasound. I also discussed the plan to refer him to both urology and nephrology for specialist evaluation. Regarding his back pain, I advised him to continue using Tylenol and to strictly avoid ibuprofen, as it can affect the kidneys. I informed him that there is nothing acutely concerning at this time but provided clear return precautions, instructing him to go to the emergency room if he develops worsening back pain, fever, or chills, as these could be signs of a kidney infection requiring urgent imaging. We will have him follow up in approximately three months to touch base on the results and progress. Orders: Orders UA w Microscopic Today R31.9 - Hematuria, unspecified, R80.9 - Proteinuria, unspecified Total Protein Urine Random Today R31.9 - Hematuria, unspecified, R80.9 - Proteinuria, unspecified Electrolytes Urine Today R31.9 - Hematuria, unspecified, R80.9 - Proteinuria, unspecified Urea, Random Urine Today R31.9 - Hematuria, unspecified, R80.9 - Proteinuria, unspecified US abdomen complete Today R31.9 - Hematuria, unspecified, R80.9 - Proteinuria, unspecified Comprehensive Met. Panel Today R31.9 - Hematuria, unspecified Creatinine Urine Today R31.9 - Hematuria, unspecified, R80.9 - Proteinuria, unspecified Basic Metabolic Panel Today R31.9 - Hematuria, unspecified, R80.9 - Proteinuria, unspecified Complete Blood Count Auto Diff Today R31.9 - Hematuria, unspecified CT NG by PCR Urine Today R31.9 - Hematuria, unspecified Referrals Urology Referral R31.9 - Hematuria, unspecified, R80.9 - Proteinuria, unspecified Nephrology Referral R31.9 - Hematuria, unspecified, R80.9 - Proteinuria, unspecified Patient Instructions: - Please go to the lab to get the new urine and blood tests done. - You will be contacted to schedule an ultrasound of your kidneys. - Our office will send referrals to a kidney specialist (club attendant) and a urinary specialist (urologist), who should contact you soon. - For your back pain, it is okay to take Tylenol, but you should avoid taking ibuprofen (like Advil or Motrin) as it can harm the kidneys. - Go to the emergency room immediately if you develop worsening back pain, fever, or chills, as this could be a sign of a kidney infection. - Please schedule a follow-up appointment in about three months to review your test results and see how you are doing.
[2025-08-14 12:56] VITALS: BP 108/72; PULSE 80; RESP 16; TEMP 36.7; O2SAT 96; BMI 25.7
== END 2025-08-14 13:11 | disposition home or self-care (01) ==
LOC: HO.HMCHD 12:48
PROVIDERS: Visit Provider Student in an Organized Health Care Education/Training Program
DX: Z00.00 Encounter for general adult medical examination without abnormal findings (principal); R31.0 Gross hematuria; M54.50 Low back pain, unspecified

== ENCOUNTER 2025-08-18 09:48 | Outpatient (REF) | payer OTHER, SELFPAY ==
--- NOTE | ~2025-08-18 | US_ITS ---
CLINICAL HISTORY: R31.9 - Hematuria, unspecified, PROTEINURIA US Renal Comparison: None provided Findings: Right kidney normal size and echotexture, 11.3 cm length. Left kidney normal size and echotexture, 10.5 cm length. No hydronephrosis of either kidney. Normal color Doppler IMPRESSION: 1. Normal kidneys. This document has been electronically signed by: Jorge Chavez MD on 08/18/2025 12:34:26
== END 2025-08-18 09:49 | disposition home or self-care (01) ==
LOC: HO.US 09:48
PROVIDERS: PCP Student in an Organized Health Care Education/Training Program; Visit Provider Student in an Organized Health Care Education/Training Program
DX: R31.9 Hematuria, unspecified (principal); R80.9 Proteinuria, unspecified
CPT/HCPCS: 76775

== ENCOUNTER → 2025-08-18 09:50 | Outpatient (BNV) | payer OTHER, SELFPAY | PROVIDERS: PCP Student in an Organized Health Care Education/Training Program; Visit Provider Radiology Vascular & Interventional Radiology | DX: R31.9 Hematuria, unspecified (principal); R80.9 Proteinuria, unspecified | CPT/HCPCS: 76775 ==